=== PATIENT | female | born 1960 | race Caucasian/White ===

== ENCOUNTER 2017-10-10 11:11 | Emergency (ER) | payer SELFPAY ==
[~2017-10-10] VITALS: Ht 167.6 cm; Wt 64.1 kg
[~2017-10-10 11:11] MED LIST: HYDROCODON-ACE1 EA11 PO; IBUPROFEN200 MG PO; KEFLEX500 MG PO; LORAZEPAM1 MG PO; MAPAP500 M1 PO; MIRALAX17 GM PO; NUCYNTA75 MG PO; ONDANSETRON4 MG/2 M1 PO; PROMETHAZI25 MG/1 ML PO; PROTONIX40 MG PO; XARELTO10 MG PO; ZOFRAN ODT4 MG PO
[2017-10-10] MEDS ORDERED: SUDAFED 12 HOU120 MG PO (11:26)
[2017-10-10] MEDS ORDERED: OMEPRAZOLE20 MG PO (15:18)
[2017-10-10] MEDS ORDERED: ZOFRAN ODT4 MG PO (15:18)
[2017-10-10] MEDS ORDERED: PHENERGAN25 MG PR (15:18)
== END 2017-10-10 15:34 | disposition home or self-care (01) ==
LOC: ED 11:11
DX: E86.0 Dehydration (principal); K52.9 Noninfective gastroenteritis and colitis, unspecified
CPT/HCPCS: 80053; 81001; 83690; 85025; 96361; 96374; 96375; 99284; 99406; J1200; J1885; J2405; J2550; J2765; J7030

== ENCOUNTER 2019-01-23 06:21 | Emergency (ER) | payer SELFPAY ==
[~2019-01-23] VITALS: Ht 167.6 cm; Wt 63.7 kg
[~2019-01-23 06:21] MED LIST changes: +NORCO 5-325 TA1 EACH PO; +OMEPRAZOLE20 MG PO; +PHENERGAN25 MG PR; +SUDAFED 12 HOU120 MG PO
--- OUTSIDE RECORDS SUMMARY | 2019-01-23 06:22 | XMS ---
PreManage Notification: FERNANDO GRAYSON Security Lithographic Proofer Apprentice Events No recent Security Events currently on file CRITERIA MET - Group Notification CARE PROVIDERS SHANNAN CHANEY Physician Laborer Livestock 10/11/2017-Current CIERA PHONE: Unknown SHANNAN STANLEY Primary Care 04/11/2016-Current PHONE: [phone] Susy Serra MD Other Current PHONE: Unknown Lee has no Care Guidelines for this patient. Care History Substance Use/Overdose 11/17/2018 [facility] 11/17/18 I saw the patient in person. The patient refused services. E.D. VISIT COUNT (12 MO.) 3 [facility] TOTAL 3 NOTE: Visits indicate total known visits. ED/UCC VISIT TRACKING (12 MO.) 01/23/2019 06:21 [facility] [place] TYPE: Emergency COMPLAINT: - LEFT SHOULDER PAIN NON INJURY 11/16/2018 21:21 [facility] [place] TYPE: Emergency COMPLAINT: - POSSIBLE OVERDOSE DIAGNOSES: - Major depressive disorder, single episode, unspecified - Vomiting, unspecified - Nicotine dependence, unspecified, uncomplicated - Poisn by oth antieplptc and sed-hypntc drugs, slf-hrm, init 09/07/2018 06:[address] [facility] [place] TYPE: Emergency COMPLAINT: - L WRIST PAIN/FALL DIAGNOSES: - Fall on same level, unspecified, initial encounter - Nicotine dependence, unspecified, uncomplicated - Pain in right wrist - Oth intartic fracture of lower end of left radius, init INPATIENT VISIT TRACKING (12 MO.) No inpatient visits to display in this time frame [id number]
[2019-01-23] MEDS ORDERED: DICLOFENAC SODI75 MG PO (06:46)
[2019-01-23] MEDS ORDERED: LIDOCAINE20 MG/1 M2 TOP (06:46)
[2019-01-23] MEDS ORDERED: NORCO 5-325 TA1 EACH PO (06:46)
== END 2019-01-23 06:54 | disposition home or self-care (01) ==
LOC: ED 06:21
DX: M75.102 Unspecified rotator cuff tear or rupture of left shoulder, not specified as traumatic (principal); F17.200 Nicotine dependence, unspecified, uncomplicated
CPT/HCPCS: 99283

== ENCOUNTER 2019-11-23 16:02 | Emergency (ER) | payer OTHER ==
[~2019-11-23] VITALS: Ht 167.6 cm; Wt 72.7 kg
[~2019-11-23 16:02] MED LIST changes: +DICLOFENAC SODI75 MG PO; +LIDOCAINE20 MG/1 M2 TOP
--- OUTSIDE RECORDS SUMMARY | 2019-11-23 16:04 | XMS ---
PreManage Notification: FERNANDO GRAYSON Security Food Storeroom Clerk Events No recent Security Events currently on file CRITERIA MET - Group Notification CARE PROVIDERS SHANNAN CHANEY Physician Adult Nurse Practitioner 10/11/2017-Current PHONE: Unknown Lee has no Care Guidelines for this patient. Care History Substance Use/Overdose 11/17/2018 [facility] 11/17/18 I saw the patient in person. The patient refused services. EBia VISIT COUNT (12 MO.) 2 [facility]. TOTAL 2 NOTE: Visits indicate total known visits. ED/UCC VISIT TRACKING (12 MO.) 11/23/2019 16:02 [facility] [place] TYPE: Emergency COMPLAINT: - WITHDRAWAL 01/23/2019 06:21 [facility] [place] TYPE: Emergency COMPLAINT: - LEFT SHOULDER PAIN NON INJURY DIAGNOSES: - Unspecified rotator cuff tear or rupture of left shoulder, no - Pain in left shoulder - Nicotine dependence, unspecified, uncomplicated INPATIENT VISIT TRACKING (12 MO.) No inpatient visits to display in this time frame [email or web address]
== END 2019-11-23 18:41 | disposition home or self-care (01) ==
LOC: ED 16:02
DX: F10.129 Alcohol abuse with intoxication, unspecified (principal); F17.200 Nicotine dependence, unspecified, uncomplicated
CPT/HCPCS: 80053; 85025; 99284

== ENCOUNTER 2020-02-07 17:42 | Emergency (ER) | payer OTHER ==
[~2020-02-07] VITALS: Ht 167.6 cm; Wt 72.7 kg
--- OUTSIDE RECORDS SUMMARY | 2020-02-07 17:48 | XMS ---
PreManage Notification: FERNANDO GRAYSON Security Roofer Metal Events No recent Security Events currently on file CRITERIA MET - Group Notification CARE PROVIDERS SHANNAN CHANEY Physician Air Compressor Mechanic 11/24/2019-Current PHONE: Unknown Lee has no Care Guidelines for this patient. Care History Substance Use/Overdose 11/17/2018 [facility] 11/17/18 I saw the patient in person. The patient refused services. EBia VISIT COUNT ([address] [facility]. TOTAL 2 NOTE: Visits indicate total known visits. ED/UCC VISIT TRACKING (12 MO.) 02/07/2020 17:46 [facility] [place] TYPE: Emergency COMPLAINT: - CLEARANCE 11/23/2019 16:02 [facility] [place] TYPE: Emergency COMPLAINT: - INTOXICATION DIAGNOSES: - Nicotine dependence, unspecified, uncomplicated - Alcohol abuse with intoxication, unspecified - Alcohol abuse with intoxication, unspecified INPATIENT VISIT TRACKING (12 MO.) No inpatient visits to display in this time frame [email or web address]
== END 2020-02-07 19:25 | disposition left against medical advice (07) ==
LOC: ED 17:42
DX: Z53.21 Procedure and treatment not carried out due to patient leaving prior to being seen by health care provider (principal)
CPT/HCPCS: 81001

== ENCOUNTER 2021-12-10 18:50 | Emergency (ER) | payer OTHER ==
[~2021-12-10] VITALS: Ht 167.6 cm; Wt 72.7 kg
--- OUTSIDE RECORDS SUMMARY | 2021-12-10 18:58 | XMS ---
PreManage Notification: FERNANDO GRAYSON Security Embryology Professor Events No recent Security Events currently on file CRITERIA MET - Group Notification CARE PROVIDERS SHANNAN CHANEY Physician Transformer Mechanic 11/24/2019-Current PHONE: Unknown Lee has no Care Guidelines for this patient. Care History Substance Use/Overdose 11/17/2018 [facility] 11/17/18 I saw the patient in person. The patient refused services. Lilia VISIT COUNT (12 MO.) 1 [facility]. TOTAL 1 NOTE: Visits indicate total known visits. ED/UCC VISIT TRACKING (12 MO.) 12/10/2021 18:52 [facility] [place] TYPE: Emergency COMPLAINT: - CCS HOLD INPATIENT VISIT TRACKING (12 MO.) No inpatient visits to display in this time frame [id number]
== END 2021-12-11 12:27 | disposition home or self-care (01) ==
LOC: ED 18:50
DX: F10.20 Alcohol dependence, uncomplicated (principal); Y90.8 Blood alcohol level of 240 mg/100 ml or more; F17.200 Nicotine dependence, unspecified, uncomplicated
CPT/HCPCS: 36415; 80053; 81001; 84439; 84443; 84481; 84703; 85025; 96372; 99285; C9803; G0480; J3486; U0003

== ENCOUNTER 2022-07-01 16:23 | Emergency (ER) | payer OTHER ==
[~2022-07-01] VITALS: Ht 165.1 cm; Wt 69.8 kg
[~2022-07-01 16:23] MED LIST changes: +PROZAC40 MG PO; +VITAMIN D21250 MCG PO; +ZOLOFT50 MG PO
--- OUTSIDE RECORDS SUMMARY | 2022-07-01 16:48 | XMS ---
PreManage Notification: FERNANDO GRAYSON Security Systems Specialist Events No recent Security Events currently on file CRITERIA MET - Group Notification CARE PROVIDERS -, Georgi- Dentist: Water Resources Project Manager [facility] PHONE: [phone] SHANNAN CHANYE Physician Director Of Scout Work 11/24/2019-Current PHONE: Unknown Lee has no Care Guidelines for this patient. Care History Substance Use/Overdose 11/17/2018 [facility] 11/17/18 I saw the patient in person. The patient refused services. E.DYaya VISIT COUNT (12 MO.) 2 [facility] TOTAL 2 NOTE: Visits indicate total known visits. ED/UCC VISIT TRACKING (12 MO.) 07/01/2022 16:[address] [facility] TYPE: Emergency COMPLAINT: - MEDICAL CLEARANCE 12/10/2021 18:52 [facility] [place] TYPE: Emergency COMPLAINT: - CCS HOLD DIAGNOSES: - Alcohol dependence, uncomplicated - Blood alcohol level of 240 mg/100 ml or more - Nicotine dependence, unspecified, uncomplicated - Suicidal ideations INPATIENT VISIT TRACKING (12 MO.) No inpatient visits to display in this time frame [id number]
[2022-07-01] MEDS ORDERED: FLUOXETINE HCL20 MG PO (17:10)
[2022-07-02 11:32] VITALS: BP 155/95
== END 2022-07-02 11:25 | disposition home or self-care (01) ==
LOC: ED 16:23
DX: R45.851 Suicidal ideations (principal); F10.229 Alcohol dependence with intoxication, unspecified; F17.200 Nicotine dependence, unspecified, uncomplicated; Z79.899 Other long term (current) drug therapy
CPT/HCPCS: 36415; 80053; 81003; 84443; 85025; 99285; A9270-GY; G0480

== ENCOUNTER 2023-01-25 05:19 | Inpatient (IN) | payer OTHER ==
[~2023-01-25] VITALS: Ht 167.6 cm; Wt 73.2 kg
[2023-01-25] VITALS (10 sets, daily range): BP systolic 122–177; BP diastolic 73–91
[~2023-01-25 05:19] MED LIST changes: +FLUOXETINE HCL20 MG PO
--- OUTSIDE RECORDS SUMMARY | 2023-01-25 05:23 | XMS ---
PreManage Notification: FERNANDO GRAYSON Security Hadoop Architect Events No recent Security Events currently on file CRITERIA MET - Group Notification CARE PROVIDERS -, Georgi- Dentist: Supervisor Tan Room [facility] PHONE: [phone] Lee has no Care Guidelines for this patient. Care History Substance Use/Overdose 11/17/2018 [facility] 11/17/18 I saw the patient in person. The patient refused services. EBia VISIT COUNT (12 MO.) [address] [facility] [place] TOTAL 3 NOTE: Visits indicate total known visits. ED/UCC VISIT TRACKING (12 MO.) 01/25/2023 05:19 [facility] TYPE: Emergency COMPLAINT: - ABD PAIN 09/16/2022 15:43 [facility] TYPE: Emergency COMPLAINT: - elbow pain due to a fall DIAGNOSES: - Cellulitis of right upper limb - elbow pain due to a fall - right elbow pain 07/01/2022 16:24 [facility] [place] TYPE: Emergency COMPLAINT: - MEDICAL CLEARANCE DIAGNOSES: - Alcohol dependence with intoxication, unspecified - Nicotine dependence, unspecified, uncomplicated - Other terminal make up operator (current) drug therapy - Suicidal ideations INPATIENT VISIT TRACKING (12 MO.) No inpatient visits to display in this time frame [email or web address]
[2023-01-25 05:51] LABS: BASOPHILS 0.5 % (0-2); EOSINOPHILS 3.5 % (0-6); HEMATOCRIT 50.6 % (35.0-50.0); LYMPHOCYTES 22.1 % (24-44); MCH 31.5 (27-36); MCHC 33.5 g/dl (30-36); MCV 93.9 fl (81-99); MONOCYTES 7.3 % (0-12); NEUTROPHILS 66.6 % (39-80); PLATELET COUNT 338 K/uL (140-440); RBC 5.39 M/ul (4.3-5.7); RDW 14.2 (10.5-15.0)
[2023-01-25 06:06] LABS: ALBUMIN 4.2 g/dL (3.4-5.0); ALBUMIN/GLOBULIN RATIO 1.27 (1.1-2.4); ALCOHOL, MEDICAL <3 ng/dL (<3); ALKALINE PHOSPHATASE 85 U/L (46-116); ALT (SGPT) 22 U/L (14-59); ANION GAP 15.9 (7-21); AST (SGOT) 24 U/L (15-37); BILIRUBIN, TOTAL 0.5 ng/dL (0.2-1.0); BUN/CREATININE RATIO 21.09 (6.0-28.6); CALCIUM 9.7 mg/dL (8.5-10.1); CARBON DIOXIDE 26 mmol/L (21-32); CHLORIDE 97 mmol/L (98-107); CREATININE, SERUM 1.28 mg/dL (0.55-1.02); GLOMERULAR FILTRATION RATE,EST 48 mL/min (>60); POTASSIUM 2.9 mmol/L (3.5-5.1); PROTEIN, TOTAL 7.5 g/dL (6.4-8.2); UREA NITROGEN 27 mg/dL (7-18)
--- NOTE | 2023-01-25 10:13 | NUR ---
THIS RN CALL PROVIDER REGARDING URINE RETENTION, NAUSEA, ABD ELEVATED BP, PROVIDER WILL COME TO CCU
--- NOTE | 2023-01-25 10:17 | NUR ---
PT ARRIVES VIA STRETCHER ON ALL MONITORS, PT MOVED OVER TO BED INDEPENDENTLY, PLACED ON CCU MONITORS, RATES PAIN 7/10 SHARP EPIGASTRIC PAIN- MEDICATED PER MAR, GIVEN WATER PER PATIENT REQUEST. PT REPORTS WAVES OF NAUSEA WITH PAIN, TOO EARLY TO GIVE ANTIEMETIC, PT HAS URGE TO VOID, BUT ANABLE TO. BLADDER SCAN SHOWS 325ML URINE. THIS RN SPOKE WITH PROVIDER REGARDING CONCERNS. ADMISSION ASSESSMENT COMPLETE SEE CHART.
[2023-01-25] MEDS ORDERED: FLUOXETINE HCL10 MG PO (10:46)
[2023-01-25] MEDS ORDERED: HYDROXYZINE HCL25 MG PO (10:47)
--- NOTE | 2023-01-25 10:48 | NUR ---
CCU ROUNDS. PT APPEARED TO BE SLEEPING. DID NOT DISTURB. LEFT GUIDEPOST WITH PRAYER CARD AND CONTACT CARD. PROVIDED PRAYER.
--- NOTE | 2023-01-25 11:49 | NUR ---
1130 THIS RN INSERTED JOSEPH CATHETER WITH ASEPTIC TECHNIQUE, IMMEDIATE RETURN OF 400ML OF CLEAR YELLOW URINE, PT TOLERATED PROCEDURE WELL.
[2023-01-25 12:16] LABS: HEMATOCRIT 50.7 % (35.0-50.0); HEMOGLOBIN 17.1 g/dL (12.0-18.0)
[2023-01-25 12:23] LABS: ANION GAP 16.1 (7-21); BUN/CREATININE RATIO 30.68 (6.0-28.6); CALCIUM 8.9 mg/dL (8.5-10.1); CREATININE, SERUM 0.88 mg/dL (0.55-1.02); POTASSIUM 4.1 mmol/L (3.5-5.1)
--- NOTE | 2023-01-25 13:22 | NUR ---
PATIENT ALERT AND ORIENTED, LYING IN BED. STATES SHE LIVES IN [place] WITH 2 STEPS IN WITH SON. NO ISSUES NAVIGATING STEPS. STATES SHE HAS NO DME. CONTINUES TO DRIVE. ISSUES FINANCIALLY TO PAY BILLS, OBTAIN FOOD, ETC. OFFERED RESOURCES. DECLINES AT THIS TIME. STATES HER SON IS WORKING ON GETTING ASSISTANCE AND STARTED THAT PROCESS PRIOR TO HER ADMISSION TO THE HOSPITAL. INSTRUCTED TO NOTIFY STAFF IF NEEDS ARISE. VERBALIZES UNDERSTANDING.
--- NOTE | 2023-01-25 14:35 | NUR ---
urine sent to lab at this time
--- NOTE | 2023-01-25 14:41 | NUR ---
MED REC COMPLETE
[2023-01-25 14:43] LABS: BILIRUBIN, URINE POSITIVE (negative); BLOOD/HGB, URINE TRACE-I (Negative); KETONE, URINE SMALL (Negative); LEUK ESTERASE, URINE NEGATIVE (negative); NITRITE, URINE NEGATIVE (negative); PH, URINE 5.5 (5-7)
[2023-01-25 14:56] LABS: EPITHELIAL CELLS, URINE SQUAMOUS 1+ /lpf (0-1+); RED BLOOD CELLS, URINE 0-1 /hpf (0-5); REFLEX CULTURE, URINE No (No); WHITE BLOOD CELLS, URINE 0-1 /HPF (0-5)
[2023-01-25 15:04] LABS: AMPHETAMINES, URINE NEGATIVE (NEGATIVE); BARBITURATES, URINE NEGATIVE (NEGATIVE); BENZODIAZEPINE, URINE NEGATIVE (NEGATIVE); BUPRENORPHINE, URINE NEGATIVE (NEGATIVE); CANNABINOID, URINE POSITIVE (NEGATIVE); COCAINE, URINE NEGATIVE (NEGATIVE); ECSTASY, URINE NEGATIVE (NEGATIVE); FENTANYL, URINE NEGATIVE (NEGATIVE); METHADONE, URINE NEGATIVE (NEGATIVE); OPIATES, URINE POSITIVE (NEGATIVE); OXYCODONE, URINE NEGATIVE (NEGATIVE); PHENCYCLIDINE, URINE NEGATIVE (NEGATIVE)
[2023-01-25] MEDS ORDERED: HAIR SKIN NAIL1 EACH PO (16:37)
--- NOTE | 2023-01-25 18:15 | NUR ---
PT REQUESTS JOSEPH BE REMOVED. JOSEPH REMOVED, PT UP TO BSC TO VOID, ABLE TO VOID SMALL AMOINT OF CLEAR YELLOW URINE.
--- NOTE | 2023-01-25 18:32 | NUR ---
PROVIDED EDUCATION REGARDING PAIN MANAGEMENT. PT C/O 07/21 EPIGASTRIC PAIN, MEDICATED PER APR. L AC IV POSITIONAL BUT FLUSHES WELL.
--- NOTE | 2023-01-25 20:20 | NUR ---
RN RECIEVED REPORT FROM PREVIOUS SHIFT. PT GENERAL ASSESSMENT COMPLETED. VITAL SIGNS REVIEWED. PT IS COMPLAINING OF EPIGASTRIC PAIN AND ABDOMINAL PAIN. PT IS REPOSITIONED AFTER GETTING UP TO USE BEDSIDE COMMODE WITH STAND BY ASSIST MARYANNE IMPROVEMENT TO PAIN SCORE. ALL QUESTIONS AND CONCERNS ADDRESSED AT THIS TIME. PT BED IS LOWERED AND LOCKED IN PLACE. 2/4 BEDSIDE RAILS ARE IN USE. CALL LIGHT IS WITH IN REACH. PT IS WEARING ANTI-SLIP SOCKS. CIWA IS PERFORMED AND SCORED 4.
--- NOTE | 2023-01-25 22:00 | NUR ---
PT IS RESTING IN BED COMFORTABLY. PT WAS COMPLAINING OF PAIN, PRN MEDICATION GIVEN. IVF STARTED. VITAL SIGNS REVIEWED AND ARE WITHIN IN NORMAL LIMITS. ALL QUESTIONS AND CONCERNS ARE ADDRESSED AT THIS TIME. BED IS LOWERED AND LOCKED. 2/4 SIDERAILS ARE UP. ANTI-SLIP SOCKS ARE ON. CALL LIGHT IS WITHIN REACH.
[2023-01-26] VITALS (8 sets, daily range): BP systolic 115–156; BP diastolic 65–90
--- NOTE | 2023-01-26 00:35 | NUR ---
PT IS RESTING IN BED. PT UP TO BEDSIDE COMMODE AND BACK TO BED. NO SIGNIFICANT CHANGES TO PT ASSESSMENT. VITAL SIGNS ARE WITH IN NORMAL LIMITS. PT COMPLAINS OF MINIMAL ABDOMINAL PAIN BUT WAS ABLE TO DECREASE PAIN WITH REPOSITIONING. ALL QUESTIONS AND CONCERNS ARE ADDRESSED AT THIS TIME. BED IS LOWERED AND LOCKED IN POSITION. CALL LIGHT IS WITH IN REACH. ANTI-SLIP SOCKS ARE ON PT, 2/[address]
--- NOTE | 2023-01-26 02:19 | NUR ---
PT IS RESTING IN BED AFTER USING BEDSIDE COMMODE. PT IS COMPLAINING OF SIGNIFICANT PAIN, PRN MEDICATION GIVEN. VITAL SIGNS REVIEWED AND WITH IN NORMAL LIMITS. ALL QUESTIONS AND CONCERNS ADDRESSED AT THIS TIME. CALL LIGHT IS WITHIN REACH. BED IS LOWERED AND LOCKED, 2/4 BED SIDE RAILS IN USE.
--- NOTE | 2023-01-26 04:00 | NUR ---
PT IS RESTING IN BED, PT REPOSITIONS SELF. PT IS HAVIGN PAIN BUT IS ABLE TO MANAGE IT WITH REPOSITIONING HER SELF AT THIS TIME. ASSESSMENT COMPLETED. VITAL SIGNS REVIEWED AND WITH IN NORMAL LIMITS. ALL QUESTIONS AND CONCERNS ADDRESSED AT THIS TIME. CALL LIGHT IS WITH IN REACH. BED IS LOWERED AND LOCKED, 2/4 SIDE RAILS IN USE. PT IS WEARING ANTI-SLIP SOCKS.
[2023-01-26 05:48] LABS: BASOPHILS 0.1 % (0-2); EOSINOPHILS 0.5 % (0-6); HEMOGLOBIN 15.3 g/dL (12.0-18.0); MCH 31.6 (27-36); MCHC 34.1 g/dl (30-36); MCV 92.8 fl (81-99); MONOCYTES 6.9 % (0-12); NEUTROPHILS 85.5 % (39-80); PLATELET COUNT 248 K/uL (140-440); RBC 4.84 M/ul (4.3-5.7); RDW 14.2 (10.5-15.0)
[2023-01-26 06:10] LABS: ALBUMIN 3.2 g/dL (3.4-5.0); ANION GAP 12.9 (7-21); BILIRUBIN, TOTAL 0.7 ng/dL (0.2-1.0); CALCIUM 8.6 mg/dL (8.5-10.1); CREATININE, SERUM 0.72 mg/dL (0.55-1.02); MAGNESIUM 1.7 mg/dL (1.8-2.4); POTASSIUM 3.9 mmol/L (3.5-5.1); PROTEIN, TOTAL 6.4 g/dL (6.4-8.2)
--- NOTE | 2023-01-26 06:15 | NUR ---
PT IS RESTING IN BED AFTER USING BEDSIDE COMMODE. PT IS HAVING ABDOMINAL PAIN, PRN MEDICATION GIVEN. VITAL SIGNS REVIEWED AND WITH IN NORMAL LIMITS. CIWA SCORE IS MINIMAL. ALL QUESTIONS AND CONCERNS ADDRESSED AT THE MOMENT. CALL LIGHT IS WITH IN REACH. BED IS LOWERED AND LOCKED WITH 2/4 SIDERAILS IN USE. ANTI-SLIP SOCKS ARE IN USE.
--- NOTE | 2023-01-26 08:03 | CONS ---
[facility] [address] [place], [place] [address] Signed DATE OF CONSULTATION: 01/25/2023 CHIEF COMPLAINT: Epigastric abdominal pain. HISTORY OF PRESENT ILLNESS: Fernando is a 62-year-old female, who apparently I have met in the past. She tells me I did a colonoscopy for her previously. I could not find that in the computer today. She has a long history of smoking a pack of cigarettes a day. She likes to drink a bottle of wine each day. She said she has withdrawn from alcohol in the past. She likes to smoke marijuana intermittently. She just went through another divorce and has been under a lot of stress. 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 Her son is living with her and he has various mental health issues including ADD. Unfortunately, he is not currently employed at age 29. 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 She has been told in the past that she has had gastritis from her drinking. On this occasion, she came in the emergency room for evaluation with epigastric pain, nausea and vomiting x40. This happened over 2 to 3 days. Of course, the Gastroccult was positive. A CT scan showed what looks like a large antral gastric ulcer and a moderate-sized hiatal hernia. She was given Protonix, thiamine and folate admitted to the hospitalist service. I was asked to see her as a general surgeon on-call for consideration of upper endoscopy. In the meantime, she has overall been doing well. PAST MEDICAL HISTORY: Gastritis, alcohol abuse, and depression. PAST SURGICAL HISTORY: Right total hip replacement and apparently colonoscopy I believe in June of this year with Dr. Evans. SOCIAL HISTORY: She likes to smoke a pack of cigarettes a day. She likes to drink a bottle of wine a day. She likes to smoke marijuana 3 times a month. She just went through a divorce several months ago. 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 He is currently unemployed. He has various mental health issues including ADD. His name is Tuan Rivas. His phone number is [phone]. He does drive. Shannan Chaney is her primary care provider. She prefers the [facility]. She works as a breakfast server at the local [employer]. She also drives. FAMILY HISTORY: Dad had an WI. REVIEW OF SYSTEMS: She had 10 systems reviewed and really nothing new to add. Electronically Signed By: DIMITRI EVANS MD 01/26/23 0803 PATIENT NAME: FERNANDO GRAYSON CONSULTATION DATE OF : 64 REPORT #: [id number] PHYSICIAN: DIMITRI EVANS MD PCP: SHANNAN CHANEY PAC REPORT IS CONFIDENTIAL AND NOT TO BE RELEASED WITHOUT AUTHORIZATION [address] [address] Signed ALLERGIES: None. MEDICATIONS: 1. Fluoxetine 30 mg p.o. daily. 2. Tylenol p.r.n. PHYSICAL EXAMINATION: VITAL SIGNS: Her blood pressure is 177/91, heart rate is 101, respiratory rate 24, temperature is 97.5. She is 94% on 2 L nasal cannula. She is 5 feet 5 inches tall at 71 kg with a body mass index of 26. GENERAL: Fernando is a 62-year-old female lying supine in her hospital bed. I can tell she is stressed and very anxious. It is obvious she has been a long-time smoker. I can see she is tachycardic on the monitor. LUNGS: Generally clear to auscultation bilaterally. HEART: Tachycardic without murmurs. ABDOMEN: Soft and flat, but she has some tenderness in the epigastric area. No peritoneal signs or symptoms. LABORATORY DATA: Her white blood cell count is 14.9, hemoglobin 17, neutrophils 66, platelets 338, potassium 2.9, BUN 27, creatinine 1.28, glucose 200. Liver function tests are negative. Albumin is 4.2, lipase negative. Alcohol less than 3. Toxicology was negative. A chest x-ray was unremarkable. A CT scan of the abdomen and pelvis is reviewed, the report and the images. She has a moderate-sized hiatal hernia. She clearly has this large antral gastric ulcer. ASSESSMENT AND PLAN: Fernando is a 62-year-old female, who presents with a large gastric ulcer related to her daily smoking and alcohol use along with her stress. She has been admitted, started on Protonix as well as thiamine and folate per the hospitalist service. Her potassium has been corrected as well. I have been asked to follow her along as a general surgeon on-call for consideration of upper endoscopy. She reminded me today that I helped her with a colonoscopy I believe earlier this year. I reviewed with her upper endoscopy. She understands there is risk including, but not limited to gas bloating, crampy abdominal pain, bleeding, perforation requiring surgery, and missed diagnosis. We also reviewed the need for monitored anesthesia care given her current situation. We are going to wait and see if we can get her hydrated and more stabilized before we check her stomach. She has expressed understanding and agrees with the above plan. Electronically Signed By: DIMITRI EVANS MD 01/26/23 0803 PATIENT NAME: FERNANDO GRAYSON CONSULTATION DATE OF : 64 REPORT #: [id number] PHYSICIAN: DIMITRI EVANS MD PCP: SHANNAN CHANEY PAC REPORT IS CONFIDENTIAL AND NOT TO BE RELEASED WITHOUT AUTHORIZATION [address] [place], [place] [address] Signed Dimitri Evans MD [facility] /[id number] cc: MD Shannan Rodriguez PA-C Copies: DIMITRI EVANS MD ~ Electronically Signed By: DIMITRI EVANS MD 01/26/23 0803 PATIENT NAME: FERNANDO GRAYSON CONSULTATION DATE OF : 64 REPORT #: [id number] PHYSICIAN: DIMITRI EVANS MD PCP: SHANNAN CHANEY PAC REPORT IS CONFIDENTIAL AND NOT TO BE RELEASED WITHOUT AUTHORIZATION
--- NOTE | 2023-01-26 11:00 | NUR ---
REMAINS NPO DUE TO POSSIBLE SCOPE.
--- NOTE | 2023-01-26 11:30 | NUR ---
DR. EVANS HERE TO SEE PATIENT, PLAN IS FOR UPPER SCOPE TOMMOROW. NO CAN HAVE CLEAN LIQUIDS. PATIENT DENIES NAUSEA.
--- NOTE | 2023-01-26 12:40 | NUR ---
DILAUDID 0.5 MG IV GIVEN FOR PAIN.
--- NOTE | 2023-01-26 13:15 | NUR ---
NAPPING. NO DISTRESS NOTED.
--- NOTE | 2023-01-26 20:45 | NUR ---
RN RECIEVED REPORT FROM PREVIOUS SHIFT. PT IS RESTING BED AT THIS TIME. PT IS ABLE TO INDEPENDENTLY GET UP TO BEDSIDE COMMODE. PT DOES COMPLAIN OF PAIN BUT HAS RELIEF WITH REPOSITIONING. VITAL SIGNS ARE REVIEWED AND WITHIN NORMAL LIMITS. ALL QUESTIONS AND CONCERNS ARE ADDRESSED AT THIS TIME. CALL LIGHT IS WITHIN REACH. PT IS WEARING ANTI-SLIP SOCKS, 2/[address]
--- NOTE | 2023-01-26 22:35 | NUR ---
PT IS RESTING IN BED AT THIS TIME. PT COMPLAINS OF PAIN, PRN MEDICATION GIVEN. PT ALSO REQUESTED A SNACK, A POPSICAL WAS GIVEN. PT REPOSITIONS SELF. ALL OTHER QUESTIONS AND CONCERNS ADDRESSED. CALL LIGHT IS WITH IN REACH. PT IS WEARING ANTI-SLIP SOCK. 2/[address] VITAL SIGNS ARE WITH IN NORMAL LIMITS.
[2023-01-27] VITALS (8 sets, daily range): BP systolic 140–180; BP diastolic 64–97
--- NOTE | 2023-01-27 00:30 | NUR ---
PT IS RESTING IN BED, IS ABLE TO GET UP TO BEDSIDE COMMODE INDEPENDENTLY. PT IS COMPLAINING OF PAIN, PRN PAIN MEDS GIVEN. PT THEN BECAME NAUSEAS, PRN ZOFRAN GIVEN. PT IS NOW RESTING COMFORTABLY. VITAL SIGNS REVIEWED. CALL LIGHT IS WITH IN REACH. ANTI-SLIP SOCKS IN PLACE, 2/4 BEDSIDE RAILS IN USE.
--- NOTE | 2023-01-27 03:00 | NUR ---
PT IS RESTING IN BED, NO COMPLAINTS OF PAIN AT THIS TIME. VITAL SIGNS REVIEWED. ALL QUESTIONS AND CONCERNS ADDRESSED AT THIS TIME. PT PREPARED TO TRANSFER ROOMS, REPORT GIVEN TO RN TAKING OVER. PT PUT ON TELE.
--- NOTE | 2023-01-27 03:14 | NUR ---
REPORT RECEIVED FROM CCU RN. PT TX TO ROOM 109 WITH ALL BELONGINGS. PT ALERT AND ORIENTED. REPORTS NAUSEA AND EPIGASTRIP/RUQ PAIN 07/21. PRN FOR PAIN AND NAUSEA ADMIN PER EMAR. PT NPO. ORAL CARE SUPPLIES PROVIDED. IVF INFUSING PER ORDER. PT ORIENTED TO ROOM AND NURSE CALL LIGHT. NO FURTHER NEEDS. CALL LIGHT IN REACH.
[2023-01-27 05:40] LABS: BASOPHILS 0.3 % (0-2); EOSINOPHILS 1.3 % (0-6); HEMATOCRIT 45.8 % (35.0-50.0); HEMOGLOBIN 15.4 g/dL (12.0-18.0); MCH 31.6 (27-36); MCHC 33.7 g/dl (30-36); MCV 93.8 fl (81-99); MONOCYTES 5.5 % (0-12); NEUTROPHILS 88.9 % (39-80); PLATELET COUNT 220 K/uL (140-440); RBC 4.88 M/ul (4.3-5.7)
--- NOTE | 2023-01-27 05:53 | NUR ---
PT RESTING ON RIGHT SIDE WITH EYES CLOSED. AWAKENS EASILY. VS AND I&O OBTAINED. NO NEEDS AT THIS TIME.
[2023-01-27 06:20] LABS: ALBUMIN 2.8 g/dL (3.4-5.0); ALBUMIN/GLOBULIN RATIO 0.78 (1.1-2.4); ANION GAP 12.8 (7-21); BILIRUBIN, TOTAL 0.5 ng/dL (0.2-1.0); BUN/CREATININE RATIO 22.95 (6.0-28.6); CALCIUM 8.6 mg/dL (8.5-10.1); CREATININE, SERUM 0.61 mg/dL (0.55-1.02); POTASSIUM 3.8 mmol/L (3.5-5.1); PROTEIN, TOTAL 6.4 g/dL (6.4-8.2)
--- NOTE | 2023-01-27 06:48 | NUR ---
PT UP TO BSC TO VOID 250 ML CONCENTRATED ORANGE COLORED URINE. BACK TO BED, CHRISTOPHE WELL. TELE #[address] SR. HR 90'S. ABD SOFT AND MILDLY DISTENDED WHICH PT STATES CHRONIC FOR THE LAST FEW MONTHS. BOWEL TONES HYPOACTIVE. PT REPORTS OCCASIONAL FLATUS. NO C/O PAIN OR NAUSEA AT THIS TIME. CALL LIGHT IN REACH.
--- NOTE | 2023-01-27 08:01 | NUR ---
REPORT RECEIVED FROM IAN RECIO. PT RESTING IN BED WITH EYES CLOSED, RESPRIATIONS EVEN AND UNLABORED. PT ALLOWED TO REST. CALL LIGHT WIHTIN REACH. BED RAILS UP.
--- NOTE | 2023-01-27 08:10 | NUR ---
MORNING ASSESSMENT AND MEDICATION DUE. PT RESTING IN BED WITH EYES CLOSED, RESPIRATIONS EVEN AND UNLABORED. NOTED THAT PT HAS A PO ABX ORDERED, DR. CANADA CONSULTED AND STATES TO HOLD ABX UNTIL AFTER EDG. ABX HELD AT THIS ITME. PT AWAKENS TO MOVEMENT IN THE ROOM. PT REPORTS 5/10 PAIN IN UPPER ABDOMEN AT THIS TIME THAT SHE STATES IS WELL CONTROLLED. PT DENIES NEED FOR PAIN MEDICATION. PT ALERT AND OREINTED TO ALL. RIGHT AC IV SITE LEAKING, PT REPORTS PAIN WITH FLUSHING, IV DC'D PER PROTOCOL, GAUZE AND COBAN APPLIED. TELEMETRY MONITORING IN PLACE, NORMAL SINUS RYTHEM CONTINUES. HEART TONES REGULAR. HEART RATE IN THE 80'S. LUNG SOUNDS CLEAR. ABDOMEN SOFT BUT TENDER. PT REPORTS MILD DISTENTION. HYPOACTIVE BOWEL TONES PRESENT. PT DENIES NAUSEA AT THIS TIME. CIWA SCORE OF 2 FOR MILD ANXIETY. PT DENIES HEADACHES, NAUSEA. NO TREMORS, AGITATION OR DIAPHROESIS PRESENT. MEDICATION GIVEN (SEE MAR). PT DENIES ADDITIONAL REQUESTS OR COMPLAINTS. CALL LIGHT WITHIN REACH. BED RAILS UP.
--- NOTE | 2023-01-27 08:38 | NUR ---
VENKATA, MANAGER INTRANET, TO ROOM TO TALK PT FOR EGD. REPORT GIVEN TO VENKATA. PT TO ENDOSCOPY.
--- NOTE | 2023-01-27 09:24 | NUR ---
01/27/23 0924 Sara Camara 0912- PT ARRIVES TO PACU, SEMI SOSA POSITION. O2 AT 4L PER NC, LR INFUSING TO LW IV. ABD FIRM, NON DISTENDED. PT REACTIVE TO STIMULUS. REPORTS PAIN AND NAUSEA SAME PRIOR TO PROCEDURE. ALL MONITORS IN PLACE. 0916- PT MOVED TO ROOM AIR AT THIS TIME. WILL CONTINUE TO MONITOR.
--- NOTE | 2023-01-27 09:56 | NUR ---
PT RETURNED FROM PACU. REPORT RECEIVED FROM IAN WEBER. PT REPORTS 8/10 PAIN IN UPPER ABDOMEN AT THIS TIME, SEE MAR FOR MEDICATION GIVEN. PT REPORTS FEELING DISTENDED AND "BLOATED" AND STATES "I JUST WANT TO SLEEP. VITAL SIGNS STABLE.PT ALERT AND OREINTED TO ALL. CIWA SCORE OF 3 FOR ANXIETY AND MILD AGIATION. PT GETTING UP AND DOWN FROM RESTING TO SITTING POSITION. PT DENIES NASUEA OR FEELING OF TREMORS OR DIAPHROESIS. LUNG SOUNDS CLEAR. TEMPERATURE MILDLY ELEVATED, I.S. PROVDIED, PT DEMONSTRATES USE REACHING 600ML X 5. ABDOMEN SOFT BUT TENDER. BOWEL TONES ACTIVE IN LOWER QUADRANTS, TYMPANIC IN UPPER QUADRANTS. PT REPROTS SHE IS PASSING KWAME. BURPRING HEARD. NO ADDITIONAL NEEDS AT THIS TIME. CALL LIGHT WITHIN REACH. ICE WATER PROVIDED.
--- NOTE | 2023-01-27 10:38 | NUR ---
VITALS SIGNS DUE. PT CALL LIGHT ON. PT REPORTS NAUSEA. PT RESTLESS IN BED, GETTING UP AND DOWN FROM LYING TO SITTING. NO TREMORS OR DIAPHORESIS SEEN AT THIS TIME. PT MILDY TACHYCARDIA. BLOOD PRESSURE ELVETED. SEE MAR FOR MEDICATION GIVEN. PT CONTINUES TO REPORT 8/10 PAIN PT DECLINES ADDITIONAL PAIN MEDICATION. PT UP TO BEDSIDE COMODE. INDEPENDANTY ADN STAEDY ON FEET. PT BACK TO BED, RESTLESS "NOTHING IS COMFORTABLE." CHARGE NURSE UPDATED. ABDOMEN REAMDINS SOFT, MILDY TENDER. BOWEL TONES ACTIVE. PT RESTING ON RIGHT SIDE. NO ADDITIONAL REQUSTS OR COMLAINTS. CALL LIGHT WITHIN REACH. BED RAILS UP.
--- NOTE | 2023-01-27 11:32 | NUR ---
VITALS SINGS DUE. PT RESTING IN BED STATING i JUST GOT TO A SPOT WHERE I'M COMFORTABLE. VITAL SIGNS STABLE. PT REPORTS SHE "THREW UP SOME WATER." CIWA SCORE OF 6 FOR NAUSEA/VOMITING, ANXIETY AND SENSITIVITY TO LIGHT. PT REQUESTS ROOM BE DARKENED. PT REPROTS ANXIETY AND THEN STATES "I'M JUST TIRED." ABDOMEN REMAINS SOFT AND MILDY TENDER. BOWEL TONES ACTIVE. PT RETURNS TO RESTING WITH EYES CLOSED. APPEARS COMFORTABLE. MILD TACHYCARDIA CONTINUES. PT REPORTS 5/10 PAIN AND DENIES NEED FOR ADDITIONAL PAIN MEDICATION. NO ADDITIONAL REQUESTS OR COMPLAINTS. CALL LIGHT WITHIN REACH. BED RAILS UP.
--- NOTE | 2023-01-27 12:26 | NUR ---
THIS RN TO ROOM TO CHECK ON PT. PT RESTING WITH EYES CLOSED ON LEFT SIDE, RESPIRATIONS EVEN AND UNLABORED. PT ALLOWED TO REST AT THIS TIME TO ALLOW FOR HEALING. BED RAILS UP. CALL LIGHT WITHIN REACH.
--- NOTE | 2023-01-27 13:12 | NUR ---
PT CALL LIGHT ON. PT REPORTS 8/10 HEADACHE AND 7/10 ABDOMINAL PAIN. PT REPORTS MILD NAUSEA NO ADDITIONAL EMESIS. PT REPORTS LIGHT SENSITIVITIY AT TIMES BUT IS THEN SEEN TO TURN ON LIGHTS OVER HEAD. CIWA OF 6. PT REPORTS "THIS ISN'T LIKE WHEN I WENT THROUGH WITHDRAWL." DR CANADA UPDATED. ORDERS GIVEN FOR TYLENOL CO OR PO DEPENDING ON PTS PREFERENCE. SEE MAR FOR MEDICATION GIVEN. PT REQUESTS TO WAIT ON ANXIETY MEDICATION PENDING RESOLUTION OF NAUSEA. NO ADDITIONAL REQUESTS OR COMPLAINTS. CALL LIGHT WITHIN REACH. BED RAILS UP.
--- NOTE | 2023-01-27 13:50 | NUR ---
AFTERNOON ASSESSMENT AND MEDICAITON DUE. PT CONTINUES TO REPORT 8/10 HEADACHE AND 7/10 ABDOMINAL PAIN, SEE MAR FOR MEDICATION GIVEN. PT REPORTS NAUSEA IS VERY MILD. PT CONTINUES TO WATCH TV WITH LIGHTS ON. PT DENEIS ANXIETY AND DECLINES ANXIETY MEDICATIONS. LUNG SOUNDS CLEAR. OCCATIONAL "SMOKERS COUGH" HEARD. MILD TACHYCARDIA CONTINUES. NORMAL SINUS RYTHEM SEEN ON TELEMTRY MONITORING WITH HEART RATE 90-110. ABDOMEN REMAINS SOFT BUT TENDER TO TOUCH WITH MILD DISTENTION PRESEENT. PT REPORTS MILD NASUEA FROM TIME TO TIME. PT REPORTS FEELING CONSITPATED. BOWEL TONES HYPOACTIVE. MD UPDATED ON PT STATUS. ORDERS GIVEN TO DC TELEMETRY MONITORING AND ORDER BOWEL MEDICATIONS. ORDERS ENTERED, REPEAT BACK PERFORMED. TELEMETRY MONITORING DC'D PER MD ORDER. MEDICATION GIVEN (SEE MAR). PT ABLE TO TOLERATE PO TYLENOL SO FAR WITH NO EMESIS SEEN. CIWA SCORE NOW 3. PT DENIES ADDITIONAL REQUESTS OR COMPLAINTS. CALL LIGHT WITHIN REACH. BED RAILS UP.
--- NOTE | 2023-01-27 14:39 | NUR ---
THIS RN TO ROOM TO CHECK ON PT. PT RESTING IN BED WITH EYES CLOSED, RESPIRATIONS EVEN AND UNLABORED. RR OF 16. PT ALLOWED TO REST. BED RAILS UP. CALL LIGHT WITHIN REACH.
--- NOTE | 2023-01-27 15:47 | NUR ---
THIS RN TO ROOM TO CHECK ON PT. PT TEARFUL, PT STATES SHE WAS JUST ON THE PHONE WITH HER SON HAVING A HEART TO HEART ABOUT "HOW SOME THINGS NEED TO CHANGE." THERAPUTIC COMMUNCATION PERFORMED. PT REPORTS MOST OF HER STRESS COMES FROM THIS RELATIONSHIP AND SHE WOULD LIKE TO WORK ON IMPROVING HER HEALTH. PT REPORTS 5/10 PAIN IN ABDOMEN AND 1/10 HEADACHE. PT DENIES NEED FOR ADDITIONAL PAIN MEDICAITON. PT DENIES NAUSEA AT THIS TIME. ENDOSCOPY PICTURES EXPLAINED TO PT. PT DENIES ADDITIONAL REQUESTS OR COMPLAINTS. CALL LIGHT WITHIN REACH. BED RAILS UP.
--- NOTE | 2023-01-27 15:53 | NUR ---
PT HERE FOR EGD AND POSSIBLE GASTRIC ULCER. PT UP WITH STAND BY ASSIST THIS SHIFT TO COMODE AND ARROUD ROOM. PT ADVANCED TO FULL LIQUID DIET AFTER EGD. EGD RESULTS REVIEWED WITH PT BY SURGEON AND THIS RN. ABDOMEN SOFT BUT DISTENDED AND TENDER THIS SHIFT. BOWEL TONES HYPOACTIVE. BOWEL MEDICATIONS STARTED THIS SHFIT. PT REPORTS 5-8/10 PAIN IN ABDOMEN AND 1-8/10 HEADACHE. PRN PAIN MEDICAITONS GIVEN. EMESIS X1 THIS SHIFT ATER EGD, ZOFRAN GIVEN. MILD NAUSEA THROUGHOUT SHIFT. CIWA SCORES OF 2-6/10, MD AWARE. PT TEARFUL AT TIMES OVER HOME SITUATION. PT VOIDING QUANITTY SUFFICIENT. PT USES CALL LIGHT AND MAKES NEEDS KNOWN.
--- NOTE | 2023-01-27 16:15 | NUR ---
THIS RN TO ROOM TO CHECK ON PT. PT RESTING IN BED AND REPORTS SHE IS "COMFY." PT REPORTS HEADACHE HAS RESOLVED. PT REPORTS ABDOMINAL PAIN REMAINS WELL CONTROLLED. PT DENIES NASUEA. NO ADDITIONAL REQUESTS OR COMPLAINTS. CALL LIGHT WITHIN REACH. BED RAILS UP.
--- NOTE | 2023-01-27 17:24 | NUR ---
THIS RN TO ROOM TO CHECK ON PT. PT DECLINES DINNER TRAY REPORTING SHE CONTINUES TO FEEL "REALLY BLOATED." PT REPORTS MILD NAUSEA. ABDOMEN REMAINS SOFT AND MILDLY DISTENDED. PT DENIES HEADACHE. MILD ANXIETY. PT DENIES SENSITIVITY TO LIGHT. NO TREMORS OR DIAPHROESIS PRESENT. CIWA OF 2 AT THIS TIME. PT DENIES NEED FOR PAIN MEDICATION AT THIS TIME. PT DENIES NEED FOR NASUEA MEDICATION. NO ADDITIONAL REQUESTS OR COMPLAINTS. CALL LIGHT WITHIN REACH. BED RAILS UP.
--- NOTE | 2023-01-27 17:44 | NUR ---
DR. CANADA CALLED AND UPDATED ON PT STATUS AND ABDOMINAL ASSESSMENT. NO NEW ORDERS AT THIS TIME. STATES HE WILL REVIEW PTS RECORDS AND ASSESSMENTS.
--- NOTE | 2023-01-27 18:13 | NUR ---
PT CALL LIGHT ON. PT REQUESTS PAIN MEDICAITON FOR 6/10 PAIN IN UPPER ABDOMEN. SEE MAR FOR MEDICATION GIVEN. SIMETHECONE ALSO GIVEN FOR BLOATING AND KWAME. PT ENCORAUGED TO AMBULATE. PT AGREES. PT UP TO AMBULATE X2 LAPS IN CHAVEZ WITH STAND BY ASSIST. PT REPORTS AMBULATIN IS "TOUGH BUT GOOD." PT BACK TO ROOM AND RESTING IN BED. PT REQUESTS MELATONIN FOR SLEEP THIS EVENING. MD CALLED, ORDERS GIVEN. ORDERS ENETERED, REPEAT BACK PERFORMED. NO ADDITIONAL REQUESTS OR COMPLAINTS. CALL LIGHT WITHIN REACH. BED RAILS UP.
--- NOTE | 2023-01-27 19:10 | NUR ---
REPORT RECIEVED FROM KATHRYN SOSA. BOARD UPDATED. IVF INFUSING PER ORDER, SITE ASSESSED, WNL. CALL LIGHT WITHIN REACH.
--- NOTE | 2023-01-27 21:17 | NUR ---
ASSESSMENT AND VITAL SIGNS DONE. SCHEDULED MEDICATIONS ADMINISTERED, SEE MAR. IV SITE ASSESSED, WNL. IVF INFUSING PER ORDER, SEE MAR. pt BLADDER SCANNED DUE TO LOWER URINE OUTPUT, NO URINE WAS DETECTED IN BLADDER. CALL LIGHT WITHIN REACH.
--- NOTE | 2023-01-28 00:15 | NUR ---
pt CALLED TO REQUEST A FLEETS ENEMA. THIS RN WENT IN THE RM TO CLARIFY THE REASON. pt STATES SHE IS UNCOMFORTABLE AND DOESN'T FEEL LIKE SHE COULD FIT ANY MORE IN HER STOMACH. THIS RN PUT IN AN NIO FOR FLEETS ENEMA. FLEETS ENEMA ADMINISTERED.
--- NOTE | 2023-01-28 01:40 | NUR ---
pt RESTING IN BED WITH EYES CLOSED. RESP OBSERVED. CALL LIGHT WITHIN REACH.
--- NOTE | 2023-01-28 03:59 | NUR ---
PATIENT IN BED RESTING. RESP OBSERVED. CALL LIGHT WITHIN REACH.
[2023-01-28 05:44] VITALS: BP 150/86
--- NOTE | 2023-01-28 05:45 | OR ---
[facility] [address], [place] [address] Signed DATE OF OPERATION: 01/27/2023 SURGEON: Dimitri Evans MD PREOPERATIVE DIAGNOSES: 1. Epigastric abdominal pain. 2. Gastritis with possible antral ulcers. 3. History of gastric ulcers x2 in antrum. POSTOPERATIVE DIAGNOSES: 1. Moderate to severe gastroduodenitis. 2. Moderate sized hiatal hernia (41-35 cm). 3. Distal esophagitis. 4. Distal esophageal linear ulcers x2. PROCEDURE: EGD with CLOtest and biopsies of the pyloric bulb, distal antrum, proximal antrum, cardia, and distal esophagus. ESTIMATED BLOOD LOSS: None. INDICATIONS: Fernando is a 62-year-old female, who came with a 3-day history of epigastric abdominal pain, nausea and vomiting at least x40. She finally decided to go to the emergency room. Of course the fluid from her stomach was Hemoccult positive. Her white count was elevated and she was little dehydrated. Her alcohol at that time was less than 3. CT scan showed what looked like a very thickened antrum with possible large gastric ulcer. She also has a moderate-sized hiatal hernia. She had been admitted to our hospital service. I was asked to see her as a local general surgeon on-call. In the hospital, we recognized one another. We went back and I found that in 2013, she was in the hospital for a similar episode. At that time, she was going through a divorce. She told me today that at that same time, her mother had been murdered. She had two antral ulcers at that time associated with her gastritis. She is now going through another divorce and her is gone. 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 She lives in a duplex. Her son stays with her, but he has ADD and borderline personality disorder. He is extremely difficult cause of her significant stress. He is currently not on disability. She likes to smoke about a pack of cigarettes a day. She uses some marijuana, I think mainly at night to help her go to sleep. She has also been drinking about a bottle of wine a day. Here in the hospital, Electronically Signed By: DIMITRI EVANS MD 01/28/23 0545 PATIENT NAME: FERNANDO GRAYSON OPERATIVE REPORT DATE OF : 64 REPORT #: [id number] PHYSICIAN: DIMITRI EVANS MD PCP: SHANNAN CHANEY [facility] REPORT IS CONFIDENTIAL AND NOT TO BE RELEASED WITHOUT AUTHORIZATION [facility] [address], [place] [address] Signed she has been on IV Protonix and that is helping. Her epigastric abdominal pain is not so severe. She is now much more hydrated. I brought her our brochure on upper endoscopy along with hiatal hernias and acid reflux. We discussed medical versus surgical treatment. We also discussed repeating the upper endoscopy. She understands there is risk including, but not limited to gas bloating, crampy abdominal pain, bleeding, perforation requiring surgery, and missed diagnosis. We also reviewed the need for monitored anesthesia care given her acute situation. She had expressed understanding and wished to proceed. DESCRIPTION OF PROCEDURE: Fernando was taken into our endoscopy suite and placed in the supine semi-recumbent position. A bite block was utilized for the case. She was given monitored anesthesia care propofol infusion per our nurse salvage grinder. The adult gastroscope was introduced and advanced under direct visualization of the camera. The duodenum proper was unremarkable with nice clear green bile. However, the pyloric bulb in her stomach showed moderate to severe inflammatory changes throughout. We did not see any ulcers in the pyloric bulb nor throughout the entire stomach. We took biopsies in the bulb and distal and proximal antrum for pathologic review. We took an additional biopsy out of the antrum for CLOtest. Upon retroflexion of scope, we could see she has a moderate-sized hiatal hernia. It measured out about 45 back to 31 cm. Interestingly, the Z-line is relatively intact. However, she had two linear ulcers with fibrinous exudate just above the GE junction. We could see they are trying to heal. We went ahead and took a biopsy of one for pathologic review. Her middle and upper esophagus were unremarkable. Really not much in the way on her arytenoids or vocal cords other than some mucus. After this, the gas was suctioned out and the gastroscope removed. Fernando tolerated the procedure quite well. RECOMMENDATIONS: Fernando will be returning to her hospital bed on the medical service. She has been advised already to discontinue smoking and alcohol and marijuana. She is going to need a proton pump inhibitor for at least three months twice a day to help heal her ulcers. She has also been advised to seek medical input with respect to her son. He might need placement in more of an adult care facility type setting where it would help him and probably reduce her stress as well. Dimitri Evans MD ALB/MODL Electronically Signed By: DIMITRI EVANS MD 01/28/23 0545 PATIENT NAME: FERNANDO GRAYSON OPERATIVE REPORT DATE OF : 64 REPORT #: [id number] PHYSICIAN: DIMITRI EVANS MD PCP: SHANNAN CHANEY [facility] REPORT IS CONFIDENTIAL AND NOT TO BE RELEASED WITHOUT AUTHORIZATION [facility] [address] [place], [place] [address] Signed /[id number] cc: MD Shannan Rodriguez PA-C Copies: DIMITRI EVANS MD ~ Electronically Signed By: DIMITRI EVANS MD 01/28/23 0545 PATIENT NAME: FERNANDO GRAYSON OPERATIVE REPORT DATE OF : 64 REPORT #: [id number] PHYSICIAN: DIMITRI EVANS MD PCP: SHANNAN CHANEY [facility] REPORT IS CONFIDENTIAL AND NOT TO BE RELEASED WITHOUT AUTHORIZATION
[2023-01-28 05:46] LABS: BASOPHILS 0.1 % (0-2); EOSINOPHILS 2.2 % (0-6); HEMATOCRIT 41.1 % (35.0-50.0); LYMPHOCYTES 5.4 % (24-44); MCH 31.7 (27-36); MCV 93.1 fl (81-99); MONOCYTES 8.9 % (0-12); NEUTROPHILS 83.4 % (39-80); PLATELET COUNT 217 K/uL (140-440); RBC 4.41 M/ul (4.3-5.7); RDW 13.6 (10.5-15.0)
--- NOTE | 2023-01-28 06:02 | NUR ---
ASSESSMENT AND VITAL SIGNS DONE. BLADDER SCAN DONE, pt HAD LOW URINE OUTPUT DURING THE NIGHT. 120 mls ON THE BLADDER SCAN. 1LNC pt SATTING AT 94%. LOWER ABDOMEN SLIGHTLY BLOATED. pt UNCOMFORTABLE.
[2023-01-28 06:14] LABS: ALBUMIN 2.5 g/dL (3.4-5.0); ALBUMIN/GLOBULIN RATIO 0.76 (1.1-2.4); ANION GAP 13.2 (7-21); BILIRUBIN, TOTAL 0.5 ng/dL (0.2-1.0); BUN/CREATININE RATIO 13.79 (6.0-28.6); CALCIUM 8.3 mg/dL (8.5-10.1); CREATININE, SERUM 0.58 mg/dL (0.55-1.02); POTASSIUM 3.2 mmol/L (3.5-5.1); PROTEIN, TOTAL 5.8 g/dL (6.4-8.2)
--- NOTE | 2023-01-28 07:25 | NUR ---
RECEIVED REPORT FROM IAN DUMONT. PT IN BED, STATING SHE IS FEELING MORE DISTENDED. DR CANADA UPDATED ON STATUS, ABDOMINAL ASSESSMENT, URINE OUTPUT AND OXYGEN NEED OVERNIGHT, NEW ORDERS PLACED, REPEAT BACK PERFORMED. PT STATES NO NEEDS AT THIS TIME, CALL LIGHT WITHIN REACH, BED RAILS UP. ASSUMING CARE OF PT WITH IAN PERALTA.
--- NOTE | 2023-01-28 07:50 | NUR ---
REPORT RECEIVED FROM INA VALENCIA. VIANAC SOSA ASSUMING CARE OF PT WITH ASSISTANCE FROM THIS RN. THIS RN TO ROOM ADN PT ENCOURAGED TO AMBULATE. PT AGREES AND AMBLATES IN CHAVEZ X 3 LAPS WITH STAND BY ASSIST. PT REPORTS 8/10 ABDOMINAL PAIN AND "BLOATING." PT BACK TO ROOM. CARAFATE EXPLAINED AND GIVEN TO PT. X-RAY TO BEDSIDE FOR IMAGING. SHANNAN COLEY PRIMARY RN, UPDATED AND TO ROOM FOR MORNING CARES. NO ADDITIONAL NEEDS AT THIS TIME. CALL LIGHT WITHIN REACH. BED RAILS UP.
--- NOTE | 2023-01-28 08:13 | NUR ---
PT LYING IN BED AWAKE AND ORIENTED X3. PT STATES PAIN IS CURRENTLY 8/10, EDUCATION ON WALKING TO HELP WITH PAIN LIKELY D/T ABDOMINAL DISTENTION. PT STATES PAIN IS 8/10 IN THE ABDOMEN, REQUESTS PAIN MEDICATION, GIVEN. ABDOMEN MODERATLEY DISTENDED, TENDER TO PALPATION, BOWEL TONES TYMPANIC, PT DENIES ANY NAUSEA AT THIS TIME. NO BOWEL MOVEMENT YET SINCE PRIOR TO ADMISSION. PT UP FOR WALKING 3 LAPS AROUND UNIT WITH LINE AND TUBE MANAGEMENT ASSISTANCE. PT ADVANCED TO SOFT DIET THIS MORNING, HAS NOT YET HAD BREAKFAST. PT HAS LOW URINE OUTPUT, MD NOTIFIED. SKIN IS C/D/I, WARM AND PINK. PT UPDATED ON PLAN OF CARE, VERBALIZES UNDERSTANDING. PT STATES NO FURTHER NEEDS AT THIS TIME, PT CONTINUES WALK WITH IAN PERALTA.
--- NOTE | 2023-01-28 08:52 | NUR ---
MEDICATION DUE. THIS RN TO ROOM, IV ASSESSED, WNL. NO S/S OF PHELBITIS PRESENT. EDUCATION REGARDING POTASSIUM INFUSION DONE WITH PT. PT DENIES ADDITIONAL REQUESTS OR COMPLAINTS. PT REPORTS PAIN IS BEGINING TO IMPROVE. PT CALL LIGHT WITHIN REACH. BED RAILS UP. PTS PRIMARY RN UPDATED.
[2023-01-28 09:05] VITALS: BP 153/81
--- NOTE | 2023-01-28 09:20 | NUR ---
PT AMBULATED 2 LAPS AROUND THE UNIT WITH SBA. PT STOPPED ONCE AND WAS BENT OVER WITH HER HANDS ON HER KNEES. PT STATED, "I AM OKAY. I AM JUST WORN OUT." PT RETURNED TO BED AND STATED, "I FEEL LIKE I CANNOT CATCH MY BREATH." O2 SATURATION OBTAINED AT 90% ON RA. PT IS REQUESTING TO WEAR O2 FOR ONE HOUR. NURSE NOTIFIED OF PT CHANGE IN CONDITION.
--- NOTE | 2023-01-28 10:15 | NUR ---
SHAYY RN NOTIFIES THIS RN THAT PT HAD COMPLAINT OF PAIN "FROM IV", POTASSIUM INFUSION RATE DECREASED.
--- NOTE | 2023-01-28 10:18 | NUR ---
THIS RN TO ROOM TO CHECK ON PT. PT RESTING WITH EYES CLOSED, RESPIRATIONS EVEN AND UNLABORED. 1L O2 BY NC REMAINS IN PLACE. BED RAILS UP. CALL LIGHT WITHIN REACH. PT ALLOWED TO REST.
--- NOTE | 2023-01-28 10:49 | NUR ---
PT AWAKE AND ALERT IN BED, STATES PAIN IS 6/10 IN ABDOMEN AND PAIN REMAINS THE SAME FROM "PRESSURE". PT STATES NO NEEDS AT THIS TIME, CALL LIGHT WITHIN REACH, BED RAILS UP.
--- NOTE | 2023-01-28 11:36 | NUR ---
THIS RN AND VIANCA RN, TO ROOM WITH DR. CANADA FOR ROUNDS. PT UPDATED ON IMAGING AND PLAN OF CARE. PT VERBALIZES UDNERSTANDING AND STATES HER QUESTIONS HAVE BEEN ANSWERED. PT DENIES ADDITIONAL REQUESTS OR COMPLAINTS. PT REPORTS 6/10 PAIN IN ABDOMEN, DECLINES TYELNOL. BED RAILS UP. CALL LIGHT WITHIN REACH. PT REMAINS NPO AT THIS TIME, NEW ORDERS GIVEN PER DR. CANADA. OXGYEN SATUARTION 89% ON ROOM AIR. PT HAS REMOVED OXYGEN. EDUCATION DONE WITH PT REGARDING WEARING OXGYEN FOR THIS TIME. PT PLACED ON 2L O2 BY NC OXYGEN SATURATION RISES TO 93%.
--- NOTE | 2023-01-28 11:55 | NUR ---
PATIENT UP WALKING IN THE CHAVEZ AND IS PLANNING TO SHOWER. WILL RETURN THIS AFTERNOON TO CHECK IN.
--- NOTE | 2023-01-28 12:00 | NUR ---
PT REQUESTS TO GET UP TO AMBULATE AND SHOWER. IV SITE TO LEFT WRIST NOTED TO BE LEAKING. SALINE LOCKED AND LEFT IN PLACE FOR AMBULATIN AND SHOWER. IV SITE COVRED. WILL START A NEW IV AFTER SHOWER. PT AMBULATING WITH TAMPING MACHINE OPERATOR. NO ADDITIONAL NEEDS AT THIS TIME.
--- NOTE | 2023-01-28 12:20 | NUR ---
PT FINISHED WITH SHOWER AND BACK TO BED. PTS SON ARRIVED TO VISIT. PTS SON AGIATED, RESTLESS, ACCOMPANIED BY SECUTIRY. PT AGREES TO VISIT WITH SON. SON STAYS FOR ~5 MINUTES AND LEAVES. PT EMOTIONAL AFTER VISITATION. THERAPUTIC COMMUNICATION PERFORMED. PT TEARFUL AT TIMES. PT EXPRESSES THAT SHE FEELS SAFE AT HOME BUT THAT "IT'S NOT A GOOD SITUATION." PT CALLING FAMILY TO DISCUSS PROBLEM. NO ADDITIONAL REQUESTS OR COMPLAINTS. CALL LIGHT WIHTIN REACH. BED RAILS UP.
--- NOTE | 2023-01-28 12:20 | NUR ---
PT AMBULATED IN THE HALLWAY WITH SBA AND UTILIZING A CANE. PT ON 2L NC. THIS TERMITE HELPER ASSISTED PT WITH SHOWER AND FULL LINEN CHANGE. PT IS CURRENTLY SITTING UP IN BED.
--- NOTE | 2023-01-28 12:50 | NUR ---
THIS RN ENTERS ROOM, PT APPEARS VERY TEARFUL, STATES SHE IS "EXTREMELY ANXIOUS AFTER SEEING MY SON AND I HAD TO TALK TO MY EX-". PT REQUESTS "SOMETHING FOR ANXIETY". MD NOTIFIED, STATES OKAY TO GIVE ATIVAN IV. PT IV COMES OUT ON OWN AFTER SHOWER, NEW IV START ATTEMPTED, IAN PERALTA CALLED TO ATTEMPT.
--- NOTE | 2023-01-28 13:09 | NUR ---
THIS RN TO ROOM TO ASSIST WITH IV START. PT CONTNUES TO BE ANXIOUS AND TEARFUL. CIWA SCORE OF 3. MD CONSULTED AND STATES TO GIVE LORAZAPAM, SEE MAR FOR MEDICATION GIVEN. NEW IV SITE NEEDED. STARTED PER PROTOCOL TO RIGHT HAND. PT TOLEARTED WELL. NO ADDITIONAL NEEDS AT THIS TIME. CALL LIGHT WITHIN REACH. BED RAILS UP.
--- NOTE | 2023-01-28 13:55 | NUR ---
PT STATES PAIN IS CURRENTLY 5/10, DECLINES PAIN MEDICATION AT THIS TIME. OXYGEN SATURATION >88%, OXYGEN TITRATED UP TO 2L VIA NC, O2 SATURATION >92%. NO CHANGE IN ABDOMINAL ASSESSMENT FROM MORNING. PT NPO. PT DENIES NAUSEA. PT STATES NO FURTHER NEEDS AT THIS TIME, STATES THAT SHE FEELS "MORE LEVEL" AFTER ATIVAN EARLIER. CALL LIGHT WTIHIN REACH, BED RAILS UP.
[2023-01-28 13:58] VITALS: BP 151/76
--- NOTE | 2023-01-28 15:30 | NUR ---
PATIENT AMBULATED 2 LAPS IN [facility]. PATIENT TOLERATED AMBULATION WELL. PATIENT NOW BACK TO BED. CALL LIGHT IN REACH. NO FURTHER NEEDS AT THIS TIME.
--- NOTE | 2023-01-28 16:10 | NUR ---
THIS RN TO ROOM TO CHECK ON PT. MEDICATION GIVEN. PT AWAKE AND WATCHING TV. PT REPORTS SHE WAS UP TO AMBULATE X2 LAPS. PT STATES SHE CAME BACK EARLY BECAUSE "I WAS RUNNING OUT OF AIR." PT STATES SHE HAD HER OXYGEN ON DURING HER WALK. OXGYEN SATURATION CURRENTLY 93% ON 2L O2 BY AK. PT REPORTS 5/10 PAIN IN ABDOMEN, PT DENIES NEED FOR PAIN MEDICATION. PT DENIES NAUSEA. MEDICATION GIVEN. PT DENIES ADDITIONAL REQUESTS OR COMPLAINTS. CALL LIGHT WITHIN REACH. BED RAILS UP.
--- NOTE | 2023-01-28 16:34 | NUR ---
PT HERE FOR GASTRIC ULCER. PT INDEPENDENT AROUND UNIT, GOAL OF 30 LAPS TODAY. PT ADVANCED TO SOFT DIET THIS MORNING, REDUCED TO NPO AFTER ABDOMINAL XRAY FINDINGS BUT FOR SIPS OF WATER TO TAKE PO MEDICATION. O2 SATURATION DECREASED THROUGHOUT SHIFT, O2 VIA NC PLACED AT 2L, O2 SATURATION WITH O2 >92%. ABDOMEN MILDLY DISTENDED, TENDER, TYMPANIC BOWEL TONES, NO BM SINCE PRIOR TO ADMISSION. PT HAS EPISODE OF ANXIETY TODAY AFTER A VISIT FROM HER SON AND SPEAKING ON THE PHONE WITH HER EX- PER PT. PT REQUESTED "SOMETHING FOR ANXIETY", IV ATIVAN GIVEN, OKAY FROM DR CANADA. PT STATES PAIN IS 4-7/10 TODAY, PRN PAIN MEDICATIONS GIVEN. PT EDUCATION TODAY ON PAIN MANAGMENT AND WALKING, PT VERBALIZED UNDERSTANDING. PT USES CALL LIGHT APPROPRIATELY.
--- NOTE | 2023-01-28 16:35 | NUR ---
PT CALL LIGHT ON. PT REQUSTS SRINI RODARTE ORDER ENTERED. MEDICATION GIVEN, SEE MAR. PT ENCOURAGED TO AMBULATE, DECLINES AT THIS TIME. PT CONTINUES TO TOELRATE ROOM AIR WITH OXGYEN SATURATIONS OF 92%. PT COUGHS UP WHITE/YELLOW SPUTUM. ENCOURAGED TO USE I.S. NO ADDITIONAL REQUESTS OR COMPLAINTS. CALL LIGHT WITHIN REACH. BED RAILS UP.
[2023-01-28 17:45] VITALS: BP 165/92
--- NOTE | 2023-01-28 18:24 | NUR ---
PT LYING IN BED AWAKE. STATES PAIN IS 7/10 AT THIS TIME, DECLINES PAIN MEDICTION. PT ASKS ABOUT MAGNESIUM CITRATE, EDUCATION PROVIDED ON USE OF THIS MEDICATION AND CURRENT ILLNESS, PT VERBALIZES UNDERSTANDING. PT ASKS FOR ICE CHIPS FOR DRY MOUTH, GIVEN. PT STATES NO FURTHER NEEDS AT THIS TIME, CALL LIGHT WITHIN REACH, BED RAILS UP.
--- NOTE | 2023-01-28 18:34 | NUR ---
PETROLEUM PLANT OPERATOR REPORTS PT HAS QUESTIONS AND WOULD LIKE TO DISCUSS HER PLAN OF CARE. THIS RN TO ROOM. PT REPORTS FRUSTRATION OVER DRY MOUTH AND THAT "I'M NOT BETTER YET." EDUCATION DONE WIHT PT REGARDING NEED TO AMBULATE AND WAYS TO HELP HER BOWEL MOVE. PT VEBALIZES UNDERSTANDING. ICE CHIPS PROVIDED FOR PT COMFORT. IV ABX STARTED. PT REPORTS HER QUESTIONS HAVE BEEN ANSWERED. NO ADDITIONAL REQUESTS OR COMPLAINTS. CALL LIGHT WITHIN REACH. BED RAILS UP.
--- NOTE | 2023-01-28 18:45 | NUR ---
DR EVANS CALLED AND UPDATED REGARDING PTS STATUS. NO NEW ORDERS AT THIS TIME.
--- NOTE | 2023-01-28 19:10 | NUR ---
REPORT RECIEVED FROM VIANCA SOSA. BOARD UPDATED. pt RESTING IN BED. NO NEEDS AT THIS TIME.
[2023-01-28 20:11] VITALS: BP 156/95
--- NOTE | 2023-01-28 20:16 | NUR ---
THIS CIRCUIT BOARD INSPECTOR ASSISTED PT. ON 10 MINUTE WALK [id number]. VITAL SIGNS TAKEN, O2 BACK ON WALL, I/OS CHARTED. CALL LIGHT LEFT WITHIN REACH. NO OTHER NEEDS AT THIS TIME.
--- NOTE | 2023-01-28 20:50 | NUR ---
DISCUSSED WITH PT NPO STATUS AND ORAL MEDICATIONS DUE. NEW TELEPHONE ORDERS RECEIVED VERIFIED WITH READBACK METHOD TO CONTINUE ALL PO MEDS WITH SIPS OF WATER AND DC BOWEL MEDS.
--- NOTE | 2023-01-28 20:56 | NUR ---
WHILE ON WALK WITH CERTIFIED PROFESSIONAL CONTROLLER PT STUBBED THE 5TH TOE ON LEFT FOOT RESULTING IN SMALL SKIN TEAR. WOUND CLEANSED AND BANDAGED. PT REPORTS MINIMAL PAIN.
--- NOTE | 2023-01-28 21:33 | NUR ---
ASSESSMENT AND VITAL SIGNS DONE. SCHEDULED MEDS ADMINISTERED, SEE MAR. IV ABX INFUSING, SEE MAR. pt C/O 08/20 PAIN. PRN PAIN MEDS ADMINISTERED. 2LNC. NEW BAG IVF INFUSING. pt UP TO BSC INDEPENDENT. CALL LIGHT IN REACH. IV SITE ASSESSED, WNL. NO OTHER NEEDS AT THIS TIME
--- NOTE | 2023-01-28 22:15 | NUR ---
IV PUMP ALARMING. ISSUE RESOLVED. PT LYING ON LEFT SIDE, DROWSY. NC OFF. SpO2 HIGH 80'S. NC REPLACED. EDUCATION PROVIDED. SpO2 LOW 90'S. NO FURTHER NEEDS.
--- NOTE | 2023-01-29 00:42 | NUR ---
PATIENT RESTING IN BED. 2LNC. pt STATES SHE PASSED GAS. NO NEEDS AT THIS TIME. CALL LIGHT WITHIN REACH.
--- NOTE | 2023-01-29 02:17 | NUR ---
pt RESTING IN THE BED WITH EYES CLOSED. RESP OBSERVED, EVEN AND UNLABORED. CALL LIGHT IN REACH.
--- NOTE | 2023-01-29 03:30 | NUR ---
pt CALLED FOR MORE ICE CHIP. ASSESSMENT DONE. 2LNC. pt STATES SHE IS PASSING GAS. CALL LIGHT IN REACH. NO OTHER NEEDS AT THIS TIME.
[2023-01-29 05:31] LABS: RDW 13.9 (10.5-15.0)
[2023-01-29 05:34] LABS: HEMATOCRIT 43.4 % (35.0-50.0); HEMOGLOBIN 14.5 g/dL (12.0-18.0); MCH 31.3 (27-36); MCHC 33.5 g/dl (30-36); MCV 93.5 fl (81-99); PLATELET COUNT 288 K/uL (140-440); RBC 4.65 M/ul (4.3-5.7)
[2023-01-29 05:45] LABS: ALBUMIN 2.4 g/dL (3.4-5.0); ALBUMIN/GLOBULIN RATIO 0.67 (1.1-2.4); BILIRUBIN, TOTAL 0.5 ng/dL (0.2-1.0); BUN/CREATININE RATIO 5.45 (6.0-28.6); CALCIUM 8.7 mg/dL (8.5-10.1); CREATININE, SERUM 0.55 mg/dL (0.55-1.02)
[2023-01-29 05:52] LABS: BANDS, MANUAL DIFF 5; EOSINOPHILS, MANUAL DIFF 1; LYMPHOCYTES, MANUAL DIFF 12; MONOCYTES, MANUAL DIFF 6; NEUTROPHILS, MANUAL DIFF 76
[2023-01-29 06:23] VITALS: BP 170/85
--- NOTE | 2023-01-29 06:27 | NUR ---
pt C/O 09/20 PAIN AND NAUSEA. PRN PAIN AND ANTINAUSEA MEDICATION ADMINISTERED. SCHEDULED MEDS ADMINISTERED, SEE MAR. CALL LIGHT IN REACH. VITAL SIGNS AND I&O'S DONE. NO OTHER NEEDS AT THIS TIME.
--- NOTE | 2023-01-29 08:16 | NUR ---
MORNING ASSESSMENT IS COMPLETE. PATIENT IS ON 3L O2, HAS A PRODUCTIVE COUGH. PATIENT UP TO WALK, SPOT CHECK ON ROOM AIR IS 85-89%, 3L O2 DURING AMBULATION. PATIENT DENIES OTHER NEEDS, IS NOT CURRENTLY NAUSEATED AND PAIN IS 4/10 AND PATIENT REPORTS THAT THIS IS COMFORTABLE FOR HER.
--- NOTE | 2023-01-29 09:08 | NUR ---
IV PROTONIX GIVEN. PATIENT DENIES OTHER NEEDS AT THIS TIME.
--- NOTE | 2023-01-29 09:56 | NUR ---
PATIENT IS TAKING A NAP, DO NOT DISTURB SIGN IS ON HER DOOR.
[2023-01-29 10:52] VITALS: BP 153/79
--- NOTE | 2023-01-29 11:00 | NUR ---
INTO SPEAK WITH PATIENT. PATIENT AWAKE. ADVISED THAT DR. EVANS HAD SPOKE WITH THE CASE MANAGEMENT STAFF THIS MORNING WITH CONCERNS REGARDING THE PATIENT CURRENT ALCOHOL USE AND ISSUES WITH HER SON. PATIENT STATES SHE HAS SPOKEN WITH HER SON AND LET HIM KNOW THAT HE WILL NEED TO WORK ON OTHER LIVING ARRANGEMENT. OFFERED ALCOHOL COUNSELING, PATIENT DECLINES. PATIENT STATES " I AM DONE AFTER THIS. I DON'T KNOW IF I WILL EVEN SMOKE AGAIN." PATIENT STATES SHE HAS A GOOD RELATIONSHIP WITH HER STEP MOTHER WHO WILL BE ASSISTING HER EMOTIONALLY AND FINANCIALLY AT DISCHARGE. PATIENT HAS BEEN IN CONTACT WITH HER BOSS AND IS TAKING CARE OF SOME OF HER OTHER STRESSORS. ADVISED THAT CASE MANAGEMENT HAPPY TO PROVIDE RESOURCES AT ANYTIME IF SHE CHANGES HER MIND AND WILL BE CONTINUING TO CHECK ON HER DURING HER STAY.
--- NOTE | 2023-01-29 11:00 | NUR ---
MS ROUNDS. NO VISIT. DO NOT DISTURB SIGN ON DOOR. PROVIDED SILENT PRAYER.
--- NOTE | 2023-01-29 11:21 | NUR ---
PATIENT GIVEN PO CARAFATE WITH SIP OF WATER. PATIENT UP TO COMMODE TO VOID. PATIENT UP TO AMBULATE IN HALLWAY.
--- NOTE | 2023-01-29 11:34 | NUR ---
PATIENT UP TO AMBULATE SEVERAL LAPS IN HALLWAY. PATIENT GIVEN 1 PERCOCET FOR 8/10 BACK PAIN AND IS PLANNING ON HAVING A NAP.
[2023-01-29 13:16] VITALS: BP 149/88
--- NOTE | 2023-01-29 13:32 | NUR ---
PATIENT IS RESTING IN BED, BACK PAIN IS 7/10 AND WARM PACK PROVIDED.
--- NOTE | 2023-01-29 13:44 | NUR ---
PATIENT IS HAVING SHERBERT, SHE HAS BEEN ADVANCED TO FULL LIQUID DIET.
--- NOTE | 2023-01-29 15:54 | NUR ---
PATIENT GIVEN SCHEDULED CARAFATE AND ONE PERCOCET FOR 6/10 BACK PAIN.
--- NOTE | 2023-01-29 16:16 | NUR ---
PATIENT CALLED AND ASKED TO AMBULATE. PATIENT AMBULATED 3 LAPS IN HALLWAY, SBA ON 2LNC. PATIENT TOLERATED AMBULATION WELL. PATIENT NOW BACK TO BED. CALL LIGHT IN REACH. NO FURTHER NEEDS AT THIS TIME.
--- NOTE | 2023-01-29 16:28 | NUR ---
PATIENT UP TO AMBULATE SEVERAL LAPS IN HALLWAY.
--- NOTE | 2023-01-29 16:35 | NUR ---
PATIENT HAS TOLERATED SIPS AND A FEW BITES OF SORBET BUT FEELS BLOATED AND DOES NOT WANT A DINNER TRAY.
[2023-01-29 17:52] VITALS: BP 154/75
--- NOTE | 2023-01-29 19:00 | NUR ---
PATIENT RESTING IN BED. IV LEVAQUIN INFUSING FOR 1.5 HOURS.
--- NOTE | 2023-01-29 19:05 | NUR ---
REPORT RECIEVED FROM SHAYY SOSA. pt IN BED RESTING. pt C/0 08/20 PAIN. PRN PAIN MEDS ADMINISTERED. WATER REFRESHED. BOARD UPDATED. CALL LIGHT WITHIN REACH. NO OTHER NEEDS AT THIS TIME.
[2023-01-29 20:38] VITALS: BP 157/78
--- NOTE | 2023-01-29 20:41 | NUR ---
PT. UP FOR A WALK, COMPLETED 3 LAPS. PT. BACK IN BED. IV PUMP PLUGGED IN, O2 CONNECTED TO WALL, VITALS AND I/OS DOCUMENTED. FRESH ICE WATER PROVIDED. CALL LIGHT LEFT WITHIN REACH. NO OTHER NEEDS AT THIS TIME.
--- NOTE | 2023-01-29 22:10 | NUR ---
ASSESSMENT AND VITAL SIGNS DONE. IV ASSESSED, WNL. IV ABX INFUSING, SEE MAR. SCHEDULED MEDICATION ADMINISTERED, SEE MAR. pt C/O 08/20 PAIN BUT DENIES PRN PAIN MEDICATION. pt REQUESTS SUPPOSITORY TO HELP WITH BM, pt REQUEST IT TO BE GIVEN IN THE MORNING. NO OTHER NEEDS AT THIS TIME. CALL LIGHT WITHIN REACH.
--- NOTE | 2023-01-30 00:10 | NUR ---
pt CALLED, IV PULLED. THIS RN STARTED NEW IV. pt TOLERATED WELL. pt REQUESTED SUSPOSITORY. SUSPOSITORY ADMNISTERED. IVF INFUSING, PER ORDER. NO OTHER NEEDS AT THIS TIME. CALL LIGHT WITHIN REACH.
--- NOTE | 2023-01-30 02:18 | NUR ---
pt RESTING IN BED. pt DENIES ANY NEEDS AT THIS TIME. CALL LIGHT WITHIN REACH.
--- NOTE | 2023-01-30 04:20 | NUR ---
pt IN THE BED. pt HAD A SM BM. pt DENIES ANY NEEDS AT THIS TIME. CALL LIGHT IN REACH.
[2023-01-30 06:12] VITALS: BP 162/82
--- NOTE | 2023-01-30 06:16 | NUR ---
ASSESSMENT AND VITAL SIGNS DONE. IV ABX INFUSING, SEE MAR. pt C/0 08/20 PAIN. PRN PAIN MEDICATION ADMINISTERED. CALL LIGHT WITHIN REACH.
--- NOTE | 2023-01-30 07:20 | NUR ---
Got report from awake overnight counselor nurse.
--- NOTE | 2023-01-30 08:14 | NUR ---
This TELEPHONE INSTRUMENT SUPERVISOR entered pt room to check on pt. Pt stated, "I am feeling kind of nauseas." Pt refused an emesis bag or cold wash cloth. Pt also expressed concern that her IV is bleeding. Nurse notified of the change in the patients condition.
--- NOTE | 2023-01-30 08:33 | NUR ---
INTO CHECK ON PATIENT. PATIENT FEELING A LITTLE BIT NAUSEATED AT THE TIME. SHE WAS RECENTLY GIVEN ZOFRAN. PATIENT IS GOING TO TRY TO GET OATMEAL AND BANANA AND SEE IF THAT HELPS ALONG WITH SHE WAS JUST GIVEN PROTONIX. PATIENT IS BORED AND WOULD LIKE A BOOK. TOP IRONER IS GOING TO TRY TO FIND HER ONE. PATIENT DENIES ANY OTHER CARES AT THIS TIME. TV IS ON. IV DRESSING NEEDS CHANGED WHEN SHE IS DONE EATING. PAIN 7/10 FROM SLEEPIN IN THE BED PATIENT STATES.
[2023-01-30 09:11] VITALS: BP 135/80
--- NOTE | 2023-01-30 10:19 | NUR ---
MS ROUNDS. NO VISIT. DO NOT DISTURB SIGN ON DOOR. DID NOT DISTURB. PROVIDED SILENT PRAYER.
--- NOTE | 2023-01-30 10:34 | NUR ---
PATIENT GIVEN PAIN MEDICATION AFTER WALING THE HALLWAY. PATIENT ADVISED AFTER WE GET CONTROL OF THE PAIN FROM BEING UP AND WALKING WE WILL TRY TO JUST DO TYLENOL DURING TODAY. PATIENT AGREES TO PLAN.
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
--- NOTE | 2023-01-30 12:27 | NUR ---
PATIENT SITTING UP AND GOING TO TRY TO EAT SOME MORE. PT PAIN IS IMPROVING AND A WARM PACK WAS GIVEN FOR HER BACK. PT DENIES ANY OTHER CARES AT THIS TIME.
[2023-01-30 14:08] VITALS: BP 157/85
--- NOTE | 2023-01-30 15:11 | NUR ---
UR NOTE MCG GASTROINTESTINAL BLEEDING, UPPER (ISC) INPATIENT 01/25/23 MET CLINICAL INDICATIONS FOR ADMISSION TO INPATIENT CARE GL DAY 1 01/27/23 VARIANCE GL DAY 2 01/29/23 VARIANCE GL DAY 2
--- NOTE | 2023-01-30 17:40 | PATH ---
[facility] [address], [place] [address] Signed THIS IS AN ADDENDUM REPORT SPECIMEN(S): A DUODENUM BULB BIOPSY SPECIMEN(S): B ANTRUM/PYLORUS BIOPSY SPECIMEN(S): C PROXIMAL ANTRUM/PYLORUS BIOPSY SPECIMEN(S): D CARDIA BIOPSY SPECIMEN(S): E DISTAL ESOPHAGEAL BIOPSY SPECIMEN SOURCE: A. DUODENUM BULB BIOPSY B. ANTRUM/PYLORUS BIOPSY C. PROXIMAL ANTRUM/PYLORUS BIOPSY D. CARDIA BIOPSY E. DISTAL ESOPHAGEAL BIOPSY CLINICAL HISTORY: Gastric ulcer at antrum FINAL PATHOLOGIC DIAGNOSIS: A. Duodenal bulb biopsy: - Benign duodenal mucosa, negative for specific diagnostic abnormality. B. Antrum/pylorus biopsy: - Benign gastric-type mucosa with focal slight chronic inflammation. - Helicobacter pylori immunostain is pending and will be reported in an addendum. C. Proximal antrum/pylorus biopsy: - Benign gastric-type mucosa with focal slight chronic inflammation. - Negative for evidence of Helicobacter organisms on routine HE-stained sections. D. Cardia biopsy: - Benign gastric-type mucosa with slight chronic inflammation. - Negative for evidence of Helicobacter organisms on routine HE-stained sections. E. Distal esophageal biopsy: - Esophageal mucosa with focal ulceration and granulation tissue. - Negative for significantly increased intraepithelial eosinophils. - Negative for glandular mucosa. JVR:clv MICROSCOPIC EXAMINATION: Histologic sections of all submitted blocks are examined by light microscopy. PATIENT NAME: FERNANDO GRAYSON PATHOLOGY DATE OF : 64 REPORT #: [id number] PHYSICIAN: DIONNE BERNARDO PCP: SHANNAN CHANEY PAC REPORT IS CONFIDENTIAL AND NOT TO BE RELEASED WITHOUT AUTHORIZATION [facility] [address], [place] [address] Signed These findings, together with the gross examination, support the pathologic diagnosis. GROSS DESCRIPTION: A. The specimen, labeled and designated "Ramona Grayson, " and designated on the requisition "duodenum bulb biopsy," is received in formalin and consists of one richard soft tissue fragment measuring 0.4 x 0.3 x 0.3 cm, the specimen is submitted entirely in (A1). B. The specimen, labeled and designated "Ramona Grayson, " and designated on the requisition "stomach, antrum/pylorus biopsy," is received in formalin and consists of one richard soft tissue fragment measuring 0.4 x 0.3 x 0.2 cm, the specimen is submitted entirely in (B1). C. The specimen, labeled and designated "Wayne, Ramona, " and designated on the requisition "stomach, antrum/pylorus proximal biopsy," is received in formalin and consists of two richard soft tissue fragments measuring 0.4 to 0.5 cm in length and up to 0.3 cm in greatest diameter, all specimens are submitted entirely in (C1). D. The specimen, labeled and designated "Wayne, G, " and designated on the requisition "stomach cardia biopsy," is received in formalin and consists of one richard soft tissue fragment measuring 0.5 x 0.4 x 0.3 cm, the specimen is submitted entirely in (D1). E. The specimen, labeled and designated "Wayne, G, " and designated on the requisition "distal esophagus biopsy," is received in formalin and consists of one richard-white soft tissue fragment measuring 0.8 x 0.4 x 0.2 cm, the specimen is submitted entirely in (E1). MMA (under the direct supervision of a pathologist) The Gross Description was prepared using a voice recognition system. The report was reviewed for accuracy; however, sound-alike word errors, addition and/or deletions may occur. If there is any question about this report, please contact Client Services. PERFORMING LABORATORY: Technical component was performed by [facility], [address] [place] [id number] (CLIA# [id number]). Professional interpretation was performed by [facility] - [facility], [address] [place] [id number] (CLIA#: [id number]). ADDITIONAL NOTES: Immunohistochemical and/or in situ hybridization studies were performed on this case with the appropriate positive controls that react as expected. This test was developed and its performance PATIENT NAME: FERNANDO GRAYSON PATHOLOGY DATE OF : 64 REPORT #: [id number] PHYSICIAN: JORDANZenfolio TOVA PCP: SHANNAN CHANEY PAC REPORT IS CONFIDENTIAL AND NOT TO BE RELEASED WITHOUT AUTHORIZATION [facility] [address], [place] [address] Signed characteristics determined by [facility]. It has not been cleared or approved by the U.S. Food and Drug Administration. The FDA has determined that such clearance or approval is not necessary. This test is used for clinical purposes. It should not be regarded as investigational or for research. [facility] is certified under the Clinical Laboratory Improvement Amendments of 1988 (CLIA) as qualified to perform high complexity clinical laboratory testing. This assay has not been validated for specimens that have been decalcified. PERFORMING LABORATORY: The technical component was performed by [facility], [address] [place] [id number] (CLIA# [id number]). Professional interpretation was performed by [facility] - [facility], [address] [place] [phone] (CLIA#: [id number]). REASON FOR ADDENDUM: To report the result of H. pylori immunostain. ADDENDUM COMMENT: A Helicobacter pylori immunostain is performed with appropriate controls on block B1 (antrum / pylorus biopsy) and is negative for evidence of Helicobacter organisms. JVR:[facility] Diagnostician: Pancho Still MD Pathologist Electronically Signed 01/30/2023 Copies: ~ PATIENT NAME: FERNANDO GRAYSON PATHOLOGY DATE OF : 64 REPORT #: [id number] PHYSICIAN: [employer] [facility] PCP: SHANNAN CHANEY PAC REPORT IS CONFIDENTIAL AND NOT TO BE RELEASED WITHOUT AUTHORIZATION
[2023-01-30 18:12] VITALS: BP 171/82
--- NOTE | 2023-01-30 18:38 | NUR ---
PATIENT OXYGEN WAS 97 WITH 1.5L. OXYGEN WAS REMOVED AND WE WILL MONITOR PATIENT. ANTIBIOTICS WILL BE STARTED. PATIENT WATCHING TV AND JUST HAD PRUNE JUICE. PATIENT HAS DINNER AT BEDSIDE TO EAT WHEN SHE IS READY.
--- NOTE | 2023-01-30 19:20 | NUR ---
Patient resting in bed. Had been up independently ambulating in ramirez, tolerating well. Report given by hadley SOSA.
--- NOTE | 2023-01-30 19:21 | NUR ---
10 minutes after starting anbitiotic patient started to have hand pain, reddness and swelling. IV was stopped and flushed. No pain with flush, felt good to be cool. Ice pack applied to patient. Will monitor and see if improves/
[2023-01-30 20:11] VITALS: BP 170/92
--- NOTE | 2023-01-30 20:55 | NUR ---
NEW 20G IV PLACED IN RW, 1 ATTEMPT. PT TOLERATED WELL. GOOD BLOOD RETURN, FLUSHES WELL. NO OTHER NEEDS AT THIS TIME. CALL LIGHT IN REACH.
--- NOTE | 2023-01-30 21:53 | NUR ---
Patient pleasant, still not feeling much of an appetite, Up ad jose in room without difficulties, Left hand red swollen from IV and d/c'd intact and new IV started in right wrist. ice applied to left hand and redness decreasing. VSS, Evening medications given along with pain pill. ABd. tender, active BT's, denies nausea. call light in reach. patient watching TV.
--- NOTE | 2023-01-30 22:13 | NUR ---
Patient turning light out to try and get some sleep. no complaints, call light within reach.
--- NOTE | 2023-01-30 22:38 | NUR ---
Patient called and feeling nauseated, Medicated with Zofran, Attempting to go to sleep.
--- NOTE | 2023-01-31 00:14 | NUR ---
Patient resting with eyes closed, appears comfortable, Patient's O2 sats 94% on RA but patient requested oxygen for sleep. Placed on 2 liters/NC. lights are out and call light in reach.
--- NOTE | 2023-01-31 03:07 | NUR ---
patient resting with eyes closed, appears comfortable, no noted distress, call light within reach.
--- NOTE | 2023-01-31 04:27 | NUR ---
Patient resting with eyes closed, appears comfortable and in no distress, call light within reach.
[2023-01-31 05:35] LABS: ANION GAP 11.3 (7-21); BUN/CREATININE RATIO 4.08 (6.0-28.6); CALCIUM 8.7 mg/dL (8.5-10.1); CREATININE, SERUM 0.49 mg/dL (0.55-1.02); MAGNESIUM 1.3 mg/dL (1.8-2.4); PHOSPHORUS, INORGANIC 2.4 mg/dL (2.5-4.9); POTASSIUM 3.3 mmol/L (3.5-5.1)
--- NOTE | 2023-01-31 05:43 | NUR ---
Patient awake, VSS, Feeling slightly nauseated, Carafate due and patient states it helps. IV infusing without difficulty. watching TV and on phone, call light in reach.
[2023-01-31 06:13] VITALS: BP 140/76
[2023-01-31 06:23] LABS: HEMOGLOBIN 14.4 g/dL (12.0-18.0); MCH 31.1 (27-36); MCHC 33.5 g/dl (30-36); PLATELET COUNT 375 K/uL (140-440); RBC 4.62 M/ul (4.3-5.7); RDW 13.9 (10.5-15.0)
[2023-01-31 06:59] LABS: LYMPHOCYTES, MANUAL DIFF 23; MONOCYTES, MANUAL DIFF 1; NEUTROPHILS, MANUAL DIFF 76
--- NOTE | 2023-01-31 07:05 | NUR ---
REPORT RECEIVED FROM IAN CARBALLO. PT SITTING UP IN BED AND RESPONDS WHEN ADDRESSED. PT REQUESTING TO ORDER BREAKFAST. THIS RN CALLED DIETARY FOR BREAKFAST ORDER. PT DENIES ANY OTHER NEEDS AT THIS TIME. CALL LIGHT IN REACH.
--- NOTE | 2023-01-31 08:42 | NUR ---
IN TO ADMINISTER MEDICATIONS, SEE MAR. PT REPORTING PAIN 6/10 IN BACK AND STOMACH. "CRAMPY IN STOMACH." HOT PACK PROVIDED FOR BACK. OFFERED PRN TYLENOL, PT REFUSES. ASSESSMENT COMPLETE. LUNG SOUNDS CLEAR. BOWEL TONES ACTIVE. PT PASSES FLATUS WHILE THIS RN IN ROOM. PT REPORTS ABD PAIN/TENDERNESS WITH ABD PALPATION. ABD NOTED TO BE DISTENDED. IV FLUSHES WNL. PT DENIES ANY OTHER NEEDS AT THIS TIME. CALL LIGHT IN REACH.
[2023-01-31 09:00] VITALS: BP 156/77
[2023-01-31] MEDS ORDERED: LEVOFLOXACIN750 MG PO (10:13)
[2023-01-31] MEDS ORDERED: FLAGYL375 MG PO (10:14)
[2023-01-31] MEDS ORDERED: AMLODIPINE BESYL5 MG PO (10:15)
--- NOTE | 2023-01-31 10:31 | NUR ---
MS ROUNDS. NO VISIT. RESPECTED "DO NOT DISTURB" SIGN ON DOOR. PROVIDED SILENT PRAYER.
--- NOTE | 2023-01-31 11:59 | NUR ---
ATTEMPTED TO CALL DR. NAVARRO TO CLARIFY ORDER.
--- NOTE | 2023-01-31 12:02 | NUR ---
IN TO ANSWER CALL LIGHT. PT SITTING UP IN BED. PT REQUESTING ASSISTANCE WITH IV AND GETTING DRESSED. THIS RN ASSISTED PT. PT DENIES ANY OTHER NEEDS AT THIS TIME. CALL LIGHT IN REACH.
--- NOTE | 2023-01-31 12:35 | NUR ---
IN TO ANSWER CALL LIGHT. PUMP ALARMING, RESOLVED. PT SITTING UP IN BED AND RESPONDS WHEN ADDRESSED. PT DENIES ANY OTHER NEEDS AT THIS TIME. CALL LIGHT IN REACH.
--- NOTE | 2023-01-31 14:15 | NUR ---
IN TO GO OVER DC INSTRUCTIONS. PT SITTING UP IN BED. PT RESPONDS WHEN ADDRESSED. DC INSTRUCTIONS WRITTEN AND VERBAL PROVIDED. PT VERBALIZES UNDERSTANDING. QUESTIONS ANSWERED. FOLLOW UP APPOINTMENTS PROVIDED. PT DENIES ANY OTHER NEEDS AT THIS TIME. CALL LIGHT IN REACH.
[2023-01-31 15:30] VITALS: BP 171/94
--- NOTE | 2023-01-31 19:17 | EKG ---
[facility] [address] [facility] [place] [address] Signed Normal sinus rhythm Normal ECG When compared with ECG of 03-MAR-2016 01:42, Vent. rate has increased BY 35 BPM Nonspecific T wave abnormality now evident in Inferior leads Confirmed by HERVE NAVARRO MD ([id number]) on 01/31/2023 7:17:21 PM Electronically Signed By: HERVE NAVARRO 01/31/231916 PATIENT NAME: GOLDIEHUSSEIN PATINOYoselin HOFFMANN Electrocardiogram DATE OF : 64 PHYSICIAN: HERVE NAVARRO REPORT #: [id number] REPORT IS CONFIDENTIAL AND NOT TO BE RELEASED WITHOUT AUTHORIZATION
== END 2023-01-31 15:14 | disposition home or self-care (01) | DRG 377 ==
LOC: ED 05:19 → CCU 07:02 → MS 01-27 02:43
PROVIDERS: Colon & Rectal Surgery; Internal Medicine; ADMIT Family Medicine; ATTEND Family Medicine
PROC: 0DB78ZX Excision of Stomach, Pylorus, Via Natural or Artificial Opening Endoscopic, Diagnostic (ICD-10-PCS; 2023-01-27)
PROC: 0DB38ZX Excision of Lower Esophagus, Via Natural or Artificial Opening Endoscopic, Diagnostic (ICD-10-PCS; 2023-01-27)
PROC: 0DB98ZX Excision of Duodenum, Via Natural or Artificial Opening Endoscopic, Diagnostic (ICD-10-PCS; principal; 2023-01-27 09:00)
DX: K25.4 Chronic or unspecified gastric ulcer with hemorrhage (principal); J18.9 Pneumonia, unspecified organism; K20.91 Esophagitis, unspecified with bleeding; K56.7 Ileus, unspecified; K44.9 Diaphragmatic hernia without obstruction or gangrene; K29.91 Gastroduodenitis, unspecified, with bleeding; E83.42 Hypomagnesemia; F17.210 Nicotine dependence, cigarettes, uncomplicated; E87.6 Hypokalemia; I10 Essential (primary) hypertension; F10.10 Alcohol abuse, uncomplicated; Z79.899 Other long term (current) drug therapy; Z96.641 Presence of right artificial hip joint
CPT/HCPCS: 36415; 71045; 74018; 74177; 80048; 80053; 80307; 81001; 83690; 83735; 84100; 85014; 85018; 85025; 87040; 87077; 87338; 88305; 88342; 93005; 93010; 99406; A9270; C9113; G0480; J0360; J0780; J1170; J1790; J1956; J2001; J2060; J2405; J2704; J3411; J3420; J3475; J3480; J3490; J7030; J7060; J7121; Q9967

== ENCOUNTER 2024-01-06 23:32 | Emergency (ER) | payer OTHER ==
[~2024-01-06] VITALS: Ht 167.6 cm; Wt 58.6 kg
[~2024-01-06 23:32] MED LIST changes: +AMLODIPINE BESYL5 MG PO; +FLAGYL375 MG PO; +FLUOXETINE HCL10 MG PO; +HAIR SKIN NAIL1 EACH PO; +HYDROXYZINE HCL25 MG PO; +LEVOFLOXACIN750 MG PO
--- OUTSIDE RECORDS SUMMARY | 2024-01-06 23:35 | XMS ---
PreManage Notification: FERNANDO GRAYSON Security Associate Director Of Nursing Events No recent Security Events currently on file CRITERIA MET - Group Notification CARE PROVIDERS -, [facility] Dentist: Stamps Or Coins Salesperson [facility] PHONE: [phone] -[place]- Dentist: Stamps Or Coins Salesperson [facility] PHONE: [phone] Lee has no Care Guidelines for this patient. Care History Substance Use/Overdose 11/17/2018 [facility] 11/17/18 I saw the patient in person. The patient refused services. E.D. VISIT COUNT (12 MO.) 2 [facility] [place] [facility] TOTAL 2 NOTE: Visits indicate total known visits. ED/UCC VISIT TRACKING (12 MO.) 01/06/2024 23:32 [facility] TYPE: Emergency COMPLAINT: - VOMITING 01/25/2023 05:19 [facility] TYPE: Emergency COMPLAINT: - ABD PAIN INPATIENT VISIT TRACKING (12 MO.) 01/25/2023 07:02 [facility] TYPE: Medical Surgical COMPLAINT: - GASTRIC ULCER DIAGNOSES: - Alcohol abuse, uncomplicated - Alcohol abuse, uncomplicated - Chronic or unspecified gastric ulcer with hemorrhage - Chronic or unspecified gastric ulcer with hemorrhage - Diaphragmatic hernia without obstruction or gangrene - Diaphragmatic hernia without obstruction or gangrene - Esophagitis, unspecified with bleeding - Esophagitis, unspecified with bleeding - Essential (primary) hypertension - Essential (primary) hypertension - Gastric ulcer, unspecified as acute or chronic, without hemorrhage or perforation - Gastroduodenitis, unspecified, with bleeding - Gastroduodenitis, unspecified, with bleeding - Hypokalemia - Hypokalemia - Hypomagnesemia - Hypomagnesemia - Ileus, unspecified - Ileus, unspecified - Nicotine dependence, cigarettes, uncomplicated - Nicotine dependence, cigarettes, uncomplicated - 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
[2024-01-06] MEDS ORDERED: PANTOPRAZOLE SODIUM 40 MG/10 ML VIAL IV ONE (23:45)
[2024-01-06] MEDS ORDERED: ondansetron HCL 4 MG/2 ML VIAL IV ONE (23:45)
[2024-01-06] MEDS ORDERED: FAMOTIDINE 20 MG/ 2 ML VIAL IV ONE (23:45)
[2024-01-06] MEDS ORDERED: MULTIVITAMINS 10 ML,FOLIC ACID 1 MG,THIAMINE HCL 100 MG in SODIUM CHLORIDE 0.9% 1,000 ML IV ONE (23:45)
[2024-01-07 00:09] LABS: BASOPHILS 0.6 % (0-2); EOSINOPHILS 1.3 % (0-6); HEMATOCRIT 52.4 % (35.0-50.0); HEMOGLOBIN 18.4 g/dL (12.0-18.0); LYMPHOCYTES 14.4 % (24-44); MCH 32.9 (27-36); MCV 93.9 fl (81-99); MONOCYTES 5.7 % (0-12); PLATELET COUNT 331 K/uL (140-440); RBC 5.58 M/ul (4.3-5.7); RDW 13.7 (10.5-15.0)
[2024-01-07 00:20] LABS: ALBUMIN 4.3 g/dL (3.4-5.0); ALBUMIN/GLOBULIN RATIO 1.19 (1.1-2.4); BILIRUBIN, TOTAL 0.7 ng/dL (0.2-1.0); BUN/CREATININE RATIO 16.45 (6.0-28.6); CALCIUM 10.2 mg/dL (8.5-10.1); CREATININE, SERUM 0.79 mg/dL (0.55-1.02); PROTEIN, TOTAL 7.9 g/dL (6.4-8.2)
[2024-01-07] MEDS ORDERED: THIAMINE HCL 200 MG/2 ML VIAL ONE (00:33)
[2024-01-07 01:03] LABS: BILIRUBIN, URINE POSITIVE (negative); BLOOD/HGB, URINE NEGATIVE (Negative); KETONE, URINE SMALL (Negative); LEUK ESTERASE, URINE NEGATIVE (negative); NITRITE, URINE NEGATIVE (negative)
[2024-01-07 01:10] LABS: AMPHETAMINES, UR NEGATIVE (NEGATIVE); BARBITURATES, UR NEGATIVE (NEGATIVE); BENZODIAZEPINES, UR NEGATIVE (NEGATIVE); BUPRENORPHINE,UR NEGATIVE (NEGATIVE); COCAINE, UR NEGATIVE (NEGATIVE); MARIJUANA (THC), UR POSITIVE (NEGATIVE); MDMA, UR NEGATIVE (NEGATIVE); METHADONE, UR NEGATIVE (NEGATIVE); METHAMPHETAMINE, UR NEGATIVE (NEGATIVE); OPIATES, UR NEGATIVE (NEGATIVE); OXYCODONE, UR NEGATIVE (NEGATIVE); PHENCYCLIDINE, UR NEGATIVE (NEGATIVE); TRICYCLIC ANTIDEPRESSANT, UR NEGATIVE (NEGATIVE)
[2024-01-07] MEDS ORDERED: droPERidol 5 MG/2 ML VIAL IV ONE (01:15)
[2024-01-07] MEDS ORDERED: OMEPRAZOLE20 MG PO (02:21)
[2024-01-07] MEDS ORDERED: ONDANSETRON ODT4 MG PO (02:21)
[2024-01-07] MEDS ORDERED: ONDANSETRON 4 MG HOME.PACK SL ONE (02:30)
[2024-01-07 02:39] VITALS: BP 143/88
== END 2024-01-07 02:40 | disposition home or self-care (01) ==
LOC: ED 23:32
PROVIDERS: Internal Medicine
DX: K29.20 Alcoholic gastritis without bleeding (principal); F10.10 Alcohol abuse, uncomplicated; F17.200 Nicotine dependence, unspecified, uncomplicated
CPT/HCPCS: 36415; 80053; 80307; 81003; 83690; 84484; 85025; 96365; 96366; 96375; 99284-25; A9270; G0480; J1790; J2405; J2470; J3411; J7030